=== PATIENT | male | born 1960 | race Caucasian/White ===

== ENCOUNTER 2019-03-02 17:21 | Inpatient (IN) ==
[2019-03-02] MEDS ORDERED: Naloxone 0.4 MG/ML INJ IVP PRN (22:55)
[2019-03-02] MEDS ORDERED: Heparin 25,000 UNIT/250 ML D5W 25,000 UNIT/250 ML IV.SOLN IVC SCH (23:15)
[2019-03-02] MEDS ORDERED: *HR* Heparin 5,000 UNIT/ML VIAL IVP PRN ×2 (23:15)
--- NOTE | 2019-03-02 23:26 | Internal Med History&Physical ---
Date of Encounter: 03/02/19 Time of Encounter: 23:17 Internal Medicine - H&P: HPI Chief complaint: Right leg pain History of present illness: Mr. Proctor is a 58 year old male chronic smoker with no other documented past medical history aside from a remote history of gastric ulcers who initially presented to [facility] due to right lower extremity pain and swelling. On their assessment Lower extremity pulses were reportedly not palpable. ABIs performed at [facility] were 0.48 and 0.80 for the right and left extremities respectively. A lower extremity arterial duplex was performed which showed significant peripheral vascular disease with various levels of occlusion and high grade stenosis involving the right and left from oral artery, and posterior tibialis artery. Case was discussed with Dr. Scott with vascular surgery and patient was subsequently to transferred here. Patient is a [id number] smoker. He reports he drinks approximately six pack of beer a day. He has not followed up with a physician since 1992. He reports she has been having right lower extremity pain since September that is worse with ambulation, radiates up to his calf and resolves with rest. Shortly after arrival patient was evaluated by Dr. Scott and per his assessment does not feel this to be a presentation of life threatening ischemia and will set patient up for a lower extremity angiography in the morning. At this time patient denies any fever, chills, shortness of breath, chest pain, abdominal pain, nausea, vomiting or diarrhea. Past Med Surg Social Fam HX - Past Medical History Medical history: no medical history Psychiatric history: no psych history - Past Surgical History Additional surgical history: plate to left side face - Social History Smoking Status: Current every day smoker Smokeless Tobacco Status: No Alcohol use: occasionally Drug use: marijuana Internal Medicine - H&P: Meds No Known Home Drugs 09/09/18 [History] Allergy/AdvReac Type Severity Reaction Status Date / Time No Known Allergies Allergy Verified 09/09/18 12:03 All Systems PM: A 10-system review of systems was performed and is negative for pertinent findings except as documented above in the HPI. - Constitutional Constitutional: no chills, no fever(s), no night sweats - EENT Eyes: no change in vision, no discharge, no pain, no photophobia Ears: no ear discharge, no ear pain, no tinnitus Nose, mouth and throat: no dysphagia, no nasal discharge, no neck pain, no sore throat - Cardiovascular Cardiovascular ROS IM: no chest pain, no diaphoresis, no dyspnea, no lightheadedness, no palpitations, no syncope - Respiratory Respiratory: no cough, no dyspnea, no wheezing, no excessive phlegm production - Gastrointestinal Gastrointestinal: no abdominal pain, no diarrhea, no hematemesis, no hematochezia, no melena, no nausea, no vomiting - Musculoskeletal Musculoskeletal ROS IM: no numbness, no tingling - Integumentary Integumentary IM: no rash, no unusual bruising - Neurological Neurological ROS: no confusion, no convulsions, no focal weakness, no numbness, no tingling, no tremor(s) - Hematologic/Lymphatic Hematologic/Lymphatic: no easy bruising - Constitutional Vitals: Temp Pulse Resp BP Pulse Ox 97.4 F L 74 14 196/121 97 03/02/19 20:05 03/02/19 20:05 03/02/19 20:05 03/02/19 20:05 03/02/19 20:05 Exam: General: Alert and oriented 3 lying in bed in no acute distress Skin:Normal color, no rash, no lesions. HEENT:EOM, pupils equal, round and reactive. Cardiovascular:Normal S1 & S2, no rubs, murmurs or gallops. No JVD. Pulse regular. Lungs:Normal breath sounds, no wheezes or crackles. Abdomen:Soft, non-tender, no rigidity. Extremities: Bilateral popliteal and pedal pulses are absent. Feet are warm to palpation. Neurological:Normal cognition and motor skills. Pulses:Carotid and radial pulses normal +2. Rest of the physical exam is non contributory Internal Med - H&P Results - Labs CBC & Chem 7: 03/02/19 23:46 03/03/19 07:02 - Assessment and Plan (1) Arterial occlusion, lower extremity Current Visit: Yes Status: Acute Assessment and plan: MARIUSZ at [facility] showing 0.48 and 0.80 of the right and left lower extremities respectively. Lower extremity arterial duplex showed right femoral artery distally appearing occluded with recannulized flow to the popliteal artery. Flow noted to the right posterior tibialis artery proximally, but appears occluded at the mid level. High-grade focal stenosis noted at the left femoral artery mid level. Diffuse plaque noted bilaterally. Patient was evaluated by Dr. Scott in my presence. At this time he does not feel that patient's current clinical presentation is consistent with limb threatening ischemia and is more likely a ongoing chronic issue of arterial insufficiency; recommended discontinuing heparin for now. He will take the patient in the morning for further evaluation with angiography. -We will continue IV fluids -Pain control -We will start patient on high-dose statin and obtain fasting lipid panel in the morning as well as an A1c -We will keep patient NPO this evening. (2) Peripheral vascular disease Current Visit: Yes Status: Acute Assessment and plan: See above (3) Hypertension Current Visit: Yes Status: Chronic Assessment and plan: On arrival patient was found to be hypertensive with a blood pressure in the 170s systolic and 100 diastolic. We will give one-time dose of hydralazine and monitor. Qualifiers: Hypertension type: essential hypertension Qualified Code(s): I10 - Essential (primary) hypertension (4) Smoking history Current Visit: Yes Status: Chronic Assessment and plan: Discussed need for smoking cessation which was further reiterated by Dr. Scott. Nicotine patch as needed. (5) Elevated troponin Current Visit: Yes Status: Acute Assessment and plan: Patient on an elevated troponin of 0.13. EKG was obtained which shows normal sinus rhythm. There is a [address] elevations in the lateral leads. Patient not currently complaining of any chest pain. -We will place patient on telemetry -We will give loading dose of aspirin -Trend troponin -Patient may need further cardiac workup with echocardiogram and stress testing given PVD and significant risk factors for coronary artery disease. (6) Elevated serum creatinine Current Visit: Yes Status: Acute Assessment and plan: Elevated serum creatinine of 1.39. Unclear if patient has underlying chronic kidney disease. Continue fluids and reassess. (7) DVT prophylaxis Current Visit: Yes Status: Acute Assessment and plan: Subcutaneous heparin - Time Spent With Patient Total time spent is greater than 50% in coordination of care (as documented) at patient's floor/unit and/or counseling patient:
--- NOTE | 2019-03-03 00:09 | Vascular/Endovasc Consult Note ---
Date of Encounter: 03/02/19 Time of Encounter: 23:00 Assessment and Plan (1) Peripheral vascular disease Current Visit: Yes Status: Chronic Patient has severe lifestyle limiting claudication. I do not interpret his symptoms and physical exam to represent ischemic rest pain. Therefore I believe the patient can be treated tomorrow and does not require emergency intervention. I recommended to the patient that he focused first on risk factor reduction and in particular complete tobacco cessation. I also informed him that he would need to be on antiplatelet therapy as well as antilipid therapy. Due to his limitation in ambulation I recommended that we perform an aortogram with runoff and probable right lower extremity endovascular intervention tomorrow. The patient wishes to proceed. We will attempt to make the necessary arrangements for angiography on Wednesday afternoon. (2) Smoking history Current Visit: Yes Status: Chronic Patient has severe tobacco abuse history. He smokes at least one pack a day and has been smoking for over 45 years. - History of Present Illness Consult date: 03/02/19 Consult reason: Right lower extremity pain Chief complaint: Right lower extremity pain History of present illness: Mr. Proctor is a 58 year old male Who was transferred from the ER at [facility] in [place] this evening. The patient had presented there with a 6 month if not longer history all right lower extremity pain with ambulation. The patient states that he has severe right foot pain as well as swelling and this radiates up into the calf. He can begin feeling this pain at 100 feet and by 100 yards he needs to stop and rest. He does not have ischemic pain at rest or nocturnal rest pain. He does not have any left lower extremity symptoms at that time. Patient states that the pain is worsening over time. He had been in the emergency room [facility] in September 2018. A venous duplex scan was performed at that time which was negative for DVT. At this time when the patient presented himself to the emergency room at [place] arterial studies were performed. I do not have the exact measurements at the time of this dictation but essentially the patient had an ankle-brachial index on the right of approximately 0.4 and on the left of approximately 0.8. The studies from the outside hospital indicated that the right superficial femoral artery was occluded and that the left popliteal artery had severe disease. The patient has not seen a physician he states for over 25 years. He is an active tobacco smoker he has been smoking for at least 45 years and smokes at least 1 pack of cigarettes a day. The patient does not know his lipid status. He states that he has hypertension but takes no medications. He denies that he is a diabetic. Past Med Surg Social Fam HX - Past Medical History Medical history: no medical history Psychiatric history: no psych history - Past Surgical History Additional surgical history: plate to left side face - Social History Smoking Status: Current every day smoker Smokeless Tobacco Status: No Alcohol use: occasionally Drug use: marijuana Medications and Allergies No Known Home Drugs 09/09/18 [History] Allergy/AdvReac Type Severity Reaction Status Date / Time No Known Allergies Allergy Verified 09/09/18 12:03 All Systems Review: The remainder of the systems were reviewed and are negative Exam Vital Signs, Last 4 Hours Temp Pulse Resp BP Pulse Ox 03/03/19 00:02 98.2 F 76 12 174/95 96 General: Present: Conversant, No Apparent Distress, Well developed, Well nourished HEENT: Present: Atraumatic, Normocephaly, Trachea midline Neck: Absent: JVD, Left Carotid bruit, Right Carotid bruit, Midline deformity, Tracheal deviation Cardiac: Present: Reg Rate and Rhythm, Normal S1 and S2, No Murmur Lungs: Present: Decreased breath sounds Neuro: Present: Alert and responsive, No focal deficits noted, Cranial nerves grossly intact Abdomen: Present: Soft, Non-tender, Other (No abdominal bruits). Absent: Masses Vascular: Present: Normal capillary refill, Bruit (Left femoral pulse has a bruit), Pulse, absent (Bilateral popliteal and pedal pulses), Pulse, normal (Bilateral femoral), Color/Temperature (His feet are warm to the touch. The plantar surface of his feet are quite dirty. ). Absent: Cyanosis, Edema, Rader rgical incisions, Amputation(s) Skin: Present: No rashes noted on visualized skin Consult Discharge Plan - Plan Referrals: NONE,PCP [Primary Care Provider] -
[2019-03-03] MEDS: 0.9 % Sodium Chloride 1,000 ML IVC SCH ×2 (00:12→16:28)
[2019-03-03] MEDS: OXYCODONE Oral CONC 10 MG/0.5 ML ORAL.SYG SL PRN ×4 (00:12→20:16)
[2019-03-03 00:16] LABS: Estimated Average Glucose 108 mg/dl; Hemoglobin A1C 5.4 %
[2019-03-03 00:22] LABS: Alanine Aminotransferase 13 Units/L (7-52); Albumin 3.8 g/dL (3.5-5.7); Albumin/Globulin Ratio 1.4 (1.1-2.2); Alkaline Phosphatase 58 Units/L (34-104); Aspartate Amino Transferase 17 Units/L (13-39); BUN/Creatinine Ratio 14 (6-26); Bilirubin,Total 0.5 mg/dL (0.3-1.0); Blood Urea Nitrogen 19 mg/dL (6-20); Calcium 9.1 mg/dL (8.6-10.3); Carbon Dioxide 21 mEq/L (23-29); Chloride 111 mEq/L (98-107); Globulin 2.8 g/dL (2.4-3.5); Glucose 186 mg/dL (70-105); Magnesium 1.9 mg/dL (1.6-2.6); Osmolality,Calculated 299 (280-300); Phosphorous 3.2 mg/dL (2.7-4.5); Potassium 3.7 mEq/L (3.5-5.1); Sodium 141 mEq/L (136-145); Total Protein 6.6 g/dL (6.4-8.9); eGFR For African Americans > 60 (> 60); eGFR For Non-African Americans 52 (> 60)
[2019-03-03 00:26] LABS: INR 1.1; Prothrombin Time 12.1 Seconds (9.4-12.1)
[2019-03-03 00:29] LABS: Activated Partial Thrombo Time 101.9 Seconds (26.0-36.0)
[2019-03-03 00:33] LABS: Troponin I 0.13 ng/mL (< 0.04)
[2019-03-03 00:36] LABS: Basophils # 0.1 K/mcL (0.0-0.2); Basophils % 0.5 %; Eosinophils # 0.5 K/mcL (0.0-0.6); Eosinophils % 4.3 %; Hematocrit 40.2 % (37.5-50.1); Hemoglobin 13.1 g/dL (12.9-16.9); Immature Granulocytes % 0.4 % (0-4); Lymphocytes # 2.5 K/mcL (0.6-4.6); Lymphocytes % 22.4 %; Mean Corpuscular HGB Conc 32.6 g/dL (31.6-35.5); Mean Corpuscular Hemoglobin 32.6 pg (28.0-33.3); Mean Platelet Volume 10.9 fL (9.4-12.4); Monocytes # 0.9 K/mcL (0.0-1.3); Monocytes % 7.8 %; Neutrophils # 7.3 K/mcL (1.6-8.9); Platelet Count 263 K/mcL (140-400); Red Blood Count 4.02 M/mcL (4.19-5.50); Red Cell Distribution Width 13.7 % (11.5-14.5); Segmented Neutrophils % 64.6 %; White Blood Count 11.2 K/mcL (4.3-11.1)
[2019-03-03 03:32] LABS: Chol/HDL Ratio 2.7 (0-4.9)
[2019-03-03] MEDS: Nicotine 14 MG PATCH.TD24 TD SCH (07:11)
[2019-03-03 07:55] LABS: Troponin I 0.12 ng/mL (< 0.04)
[2019-03-03 08:07] LABS: BUN/Creatinine Ratio 15 (6-26); Blood Urea Nitrogen 21 mg/dL (6-20); Calcium 9.3 mg/dL (8.6-10.3); Carbon Dioxide 21 mEq/L (23-29); Chloride 113 mEq/L (98-107); Glucose 97 mg/dL (70-105); Osmolality,Calculated 301 (280-300); Potassium 3.7 mEq/L (3.5-5.1); Sodium 144 mEq/L (136-145); eGFR For African Americans > 60 (> 60); eGFR For Non-African Americans 51 (> 60)
[2019-03-03] MEDS ORDERED: 0.9 % Sodium Chloride 1,000 ML ONE (10:47)
[2019-03-03] MEDS ORDERED: Isovue-300 150 ML INFUS..BTL ONE ×2 (10:48→12:05)
[2019-03-03] MEDS ORDERED: *HR* Heparin 10,000 UNIT/10 ML VIAL ONE (10:48)
[2019-03-03] MEDS ORDERED: Nitroglycerin 1,000 MCG/10 ML VIAL IV ONE (10:48)
[2019-03-03] MEDS ORDERED: Heparin 1,000 UNITS/500 mL 500 ML ONE (10:51)
[2019-03-03] MEDS ORDERED: *HR* Midazolam HCl 2 MG/2 ML VIAL ONE (11:13)
[2019-03-03] MEDS ORDERED: *HR* FentaNYL (PF) 100 MCG/2 ML VIAL ONE ×2 (11:13→11:56)
--- NOTE | 2019-03-03 11:13 | History & Physical Report ---
Date of Encounter: 03/03/19 Time of Encounter: 11:12 24 Hour HP Update - Instructions Instructions: If the History and Physical is less than 30 days old and was completed prior to A.M. admission and or procedure and has NOT been updated on calendar day of procedure please complete this update prior to performing procedure. - Update Patient reports changes in Medical Condition: No Changes in examination, assessment, or condition: No Changes in Medication: No Preop tests/diagnostics Reviewed: Yes Surgery Remains Indicated: Yes Consent for Planned Operative Procedure(s) Verified: Yes - Pre-Operative Checklist Preoperative Checklist Indicated: No Prophylactic Antibiotic Ordered: No Home Medications Include Beta Juventino: No Beta Juventino Taken Today (Day of Surgery): No Beta Juventino Taken Yesterday (Day Prior to Surgery): No Is VTE Prophylaxis Indicated?: NO
--- NOTE | 2019-03-03 11:13 | Pre-Sedation Evaluation ---
Pre-sedation evaluation - Pre-sedation checklist Date of procedure: 03/03/19 Procedure: Angiogram Recent Vitals: Last Vital Signs Temp 98.6 F 03/03/19 07:27 Pulse 73 03/03/19 07:27 Resp 16 03/03/19 07:27 BP 165/92 03/03/19 07:27 Pulse Ox 93 03/03/19 07:27 H&P (including ROS) documented in medical record: Yes Previous reaction to sedatives/anesthetics: No Dietary Status: NPO after Midnight Dentition: poor dentition ASA Classification *see protocol: CLASS III-Severe systemic disease Plan of Care: Pt appropriate candidate for procedure/moderate/conscious sedation, Risks/benefits of procedure/sedation discussed w/ patient/family
[2019-03-03] MEDS ORDERED: *HR* Metoprolol 5 MG/5 ML VIAL IVP ONE (11:22)
--- NOTE | 2019-03-03 12:05 | Internal Med Progress Note ---
Hospitalist Progress Note - Encounter Date of Encounter: 03/03/19 Time of Encounter: 09:15 - Subjective Interval History: H&P reviewed. Pt states that he doesn't have much pain when resting but does complain of long-standing numbness of R foot. No fever overnight - Exam Vitals: Temp Pulse Resp BP Pulse Ox 98.6 F 73 16 165/92 93 03/03/19 07:27 03/03/19 07:27 03/03/19 07:27 03/03/19 07:27 03/03/19 07:27 Exam: General: Alert and oriented 3 lying in bed in no acute distress Cardiovascular:Normal S1 & S2, no rubs, murmurs or gallops. No JVD. Pulse regular. Lungs:Normal breath sounds, no wheezes or crackles. Abdomen:Soft, non-tender, no rigidity. Extremities: Bilateral popliteal and pedal pulses are absent. Feet are warm to palpation however - Assessment and Plan (1) Peripheral vascular disease Current Visit: Yes Status: Acute Assessment and Plan: presented with R LE claudication MARIUSZ at the OSH was 0.48 on the right, 0.8 on the left appreciate vascular surgery input, for aortogram with runoff today ASA, statin (2) Elevated troponin Current Visit: Yes Status: Acute Assessment and Plan: troponin of 0.13 - 0.12 witH EKG showing NSR, unlikely to represent ACS telemetry echocardiogram ASA, statin as above (3) CKD (chronic kidney disease) stage 3, GFR 30-59 ml/min Current Visit: Yes Status: Suspected Assessment and Plan: suspect underlying CKD in the setting of poorly controlled HTN avoid nephrotoxins continue IVF for now in anticipation of aortogram today (4) Smoking history Current Visit: Yes Status: Chronic Assessment and Plan: NRT counseling proided (5) Hypertension Current Visit: Yes Status: Chronic Assessment and Plan: labetalol PRN for now (6) DVT prophylaxis Current Visit: Yes Status: Acute Assessment and Plan: SQ heparin - Time Spent with Patient Total time spent is greater than 50% in coordination of care (as documented) at patient's floor/unit and/or counseling patient: 25 - 35 minutes Plan of Care Discussed with: patient Internal Medicine: Result - Labs CBC & Chem 7: 03/02/19 23:46 03/03/19 07:02 Labs: Short CBC 03/02/19 Range/Units 23:46 WBC 11.2 H (4.3-11.1) K/mcL Hgb 13.1 (12.9-16.9) g/dL Hct 40.2 (37.5-50.1) % Plt Count 263 (140-400) K/mcL Neutrophils # 7.3 (1.6-8.9) K/mcL BMP 03/02/19 03/03/19 23:46 07:02 Sodium 141 144 Potassium 3.7 3.7 Chloride 111 H 113 H Carbon Dioxide 21 L 21 L BUN 19 21 H Creatinine 1.39 H 1.41 H Glucose 186 H 97 Calcium 9.1 9.3 Cardiac Enzymes 03/02/19 03/03/19 Range/Units 23:46 07:02 Troponin I 0.13 H* 0.12 H* (< 0.04) ng/mL Liver Function 03/02/19 Range/Units 23:46 Total Bilirubin 0.5 (0.3-1.0) mg/dL AST 17 (13-39) Units/L ALT 13 (7-52) Units/L Alkaline Phosphatase 58 (34-104) Units/L Albumin 3.8 (3.5-5.7) g/dL - ABG Interpretation ABG results: PT/INR, D-dimer PT 12.1 Seconds (9.4-12.1) 03/02/19 23:46 Consult Discharge Plan - Plan Referrals: NONE,PCP [Primary Care Provider] - (5) Hypertension Qualifiers: Hypertension type: essential hypertension Qualified Code(s): I10 - Essential (primary) hypertension
--- NOTE | 2019-03-03 12:14 | Procedure Note ---
Date of procedure: 03/03/19 Pre-op diagnosis: PAD/right leg claudication Post-op diagnosis: same Procedure: abdominal aortogram aortogram with bilateral lower extremity runoff selective right leg angiogram Anesthesia: MAC Surgeon: Ramirez Baldwin Was there an client account assistant present: No Estimated blood loss (cc): 0 Specimen: 0 Condition: stable Disposition: floor (patient will need right femoral-popliteal bypass graft next week(tentative Wednesday))
[2019-03-03] MEDS ORDERED: Ondansetron 4 MG/2 ML VIAL IVP PRN (12:22)
[2019-03-03] MEDS ORDERED: *HR* HYDROcodone/Acet 5/325 mg TABLET PO PRN (12:22)
[2019-03-03] MEDS ORDERED: Acetaminophen 325 MG TABLET PO PRN (12:22)
[2019-03-03] MEDS: *HR* Labetalol 20 MG/4 ML SYRINGE IVP PRN ×2 (13:43→21:18)
[2019-03-03] MEDS: *HR* Heparin 5,000 UNIT/ML VIAL SQ SCH ×2 (14:04→20:16)
--- NOTE | 2019-03-03 17:48 | Electrocardiograph Report ---
[address] [address] Test Date: 2019-03-03 Pat Name: Jesus Alberto Proctor Department: 111 Room: 2NE23 Gender: M Technical Stenographer: Raw : 1960 Requested By: Jacklyn Pulido Order Number: [id number] Reading MD: Jose Dodge Measurements Intervals [place] Rate: 70 P: 45 MS: 140 QRS: -16 QRSD: 120 T: 89 QT: 417 QTc: 438 Interpretive Statements SINUS RHYTHM POSSIBLE RIGHT VENTRICULAR CONDUCTION DELAY MODERATE T-WAVE ABNORMALITY, CONSIDER ANTERIOR AND ANTEROLATERAL ISCHEMIA Electronically Signed On 03-03-2019 17:46:26 EDT by Jose Dodge
[2019-03-03] MEDS ORDERED: *HR* LORazepam 2 MG/ML VIAL IVP PRN ×3 (19:52)
[2019-03-03] MEDS ORDERED: *HR* Promethazine 25 MG/ML VIAL IVP PRN (19:52)
[2019-03-03] MEDS: Thiamine (B-1) 100 MG TABLET PO SCH (20:15)
[2019-03-03] MEDS: Folic Acid 1 MG TABLET PO SCH (20:15)
[2019-03-03] MEDS: Vitamin B Complex/Vit C/Vit E 1 EACH TABLET PO SCH (20:16)
[2019-03-03 22:17] LABS: Amylase 21 Units/L (29-103); Ethanol < 10 mg/dL (Less than 10); Lipase 65 Units/L (11-82)
[2019-03-04] MEDS ORDERED: *HR* Metoprolol 5 MG/5 ML VIAL IVP ONE (00:37)
[2019-03-04] MEDS: OXYCODONE Oral CONC 10 MG/0.5 ML ORAL.SYG SL PRN ×2 (00:42→08:38)
[2019-03-04] MEDS: *HR* Heparin 5,000 UNIT/ML VIAL SQ SCH (05:08)
[2019-03-04 06:51] LABS: Basophils # 0.1 K/mcL (0.0-0.2); Basophils % 0.5 %; Eosinophils # 0.4 K/mcL (0.0-0.6); Eosinophils % 3.2 %; Hematocrit 37.7 % (37.5-50.1); Hemoglobin 12.3 g/dL (12.9-16.9); Immature Granulocytes % 0.3 % (0-4); Lymphocytes # 1.7 K/mcL (0.6-4.6); Lymphocytes % 14.9 %; Mean Corpuscular HGB Conc 32.6 g/dL (31.6-35.5); Mean Corpuscular Hemoglobin 32.4 pg (28.0-33.3); Mean Corpuscular Volume 99.2 fL (83.0-100.0); Mean Platelet Volume 11.1 fL (9.4-12.4); Monocytes # 1.3 K/mcL (0.0-1.3); Monocytes % 11.2 %; Platelet Count 235 K/mcL (140-400); Red Cell Distribution Width 13.7 % (11.5-14.5); Segmented Neutrophils % 69.9 %; White Blood Count 11.4 K/mcL (4.3-11.1)
[2019-03-04 07:04] LABS: Calcium 9.2 mg/dL (8.6-10.3); Potassium 3.7 mEq/L (3.5-5.1)
[2019-03-04 07:46] VITALS: BP 176/96
[2019-03-04] MEDS: Vitamin B Complex/Vit C/Vit E 1 EACH TABLET PO SCH (08:33)
[2019-03-04] MEDS: Folic Acid 1 MG TABLET PO SCH (08:33)
[2019-03-04] MEDS: Thiamine (B-1) 100 MG TABLET PO SCH (08:33)
[2019-03-04] MEDS: Nicotine 14 MG PATCH.TD24 TD SCH (08:34)
[2019-03-04] MEDS ORDERED: Aspirin Enteric Coated 81 MG Tablet PO SCH (09:00)
--- NOTE | 2019-03-04 09:57 | Discharge Summary ---
- NOTES TO OUTPATIENT PROVIDER Notes to Outpatient Provider: BMP in 5 days. Follow up with Vascular Surgery on 03/07 for fem-pop bypass. Follow up with Nephrology as outpatient for CKD. Orders not resulted at time of discharge: Pending orders 03/04/19 19:54 EV echocardiogram Routine Date of Encounter: 03/04/19 Time of Encounter: 07:15 - Discharge Diagnosis (1) Peripheral vascular disease Priority: Primary Status: Acute (2) Hypertension Priority: Secondary Status: Chronic Qualifiers: Hypertension type: essential hypertension Qualified Code(s): I10 - Essential (primary) hypertension (3) Arterial occlusion, lower extremity Priority: Secondary Status: Acute (4) Smoking history Priority: Secondary Status: Chronic (5) DVT prophylaxis Priority: Secondary Status: Acute (6) Elevated troponin Priority: Secondary Status: Acute (7) Elevated serum creatinine Priority: Secondary Status: Acute Hospital course: Mr. Proctor is a 58 year old male strip tobacco abuse was admitted for R LE PAD and elevated troponin in the setting of poorly controlled HTN. Underwent aortogram with bilateral lower extremity runoff and vascular surgery determined that he needs R fem-pop bypass that was scheduled for 03/07. He also had echocardiogram done for mildly elevated troponin of 0.13 -0.12 without angina and the findings were unremarkable. He had elevated Creatinine level that were stable around 1.4-1.5 raising a suspicion for CKD. He will be discharged home on ASA, statin and coreg/norvasc for BP and follow up with Vascular surgery on 03/07 for surgery and Nephrology for CKD with BMP in 5 days. Discharge discussed with: patient, nurse, sql server consultant - Time Spent with Patient Total time spent providing and/or coordinating discharge services: 32 mins - Discharge Medications Prescriptions: New Aspirin Enteric Coated [Aspirin EC] 81 mg PO DAILY #30 tablet. Carvedilol [Coreg] 6.25 mg PO BIDWM #60 tablet Atorvastatin [Lipitor] 80 mg PO HS #60 tablet amLODIPine [Norvasc] 5 mg PO DAILY #30 tablet Home Medications: Aspirin Enteric Coated [Aspirin EC] 81 mg PO DAILY #30 tablet. 03/04/19 [Rx] Atorvastatin [Lipitor] 80 mg PO HS #60 tablet 03/04/19 [Rx] Carvedilol [Coreg] 6.25 mg PO BIDWM #60 tablet 03/04/19 [Rx] amLODIPine [Norvasc] 5 mg PO DAILY #30 tablet 03/04/19 [Rx] Allergies/Adverse Reactions: Allergy/AdvReac Type Severity Reaction Status Date / Time No Known Allergies Allergy Verified 09/09/18 12:03 Date of admission: 03/03/19 04:16 Primary care physician: PCP NONE Consults: 03/03/19 19:52 Consult to Welder Helper [CONS] Routine Reason for SW Consult: Alcohol rehabilitation - Constitutional Vitals: Temp Pulse Resp BP Pulse Ox 98.2 F 74 15 176/96 94 03/04/19 07:43 03/04/19 07:43 03/04/19 07:43 03/04/19 07:43 03/04/19 07:43 Exam: General: Alert and oriented 3 lying in bed in no acute distress Cardiovascular:Normal S1 & S2, no rubs, murmurs or gallops. No JVD. Pulse regular. Lungs:Normal breath sounds, no wheezes or crackles. Abdomen:Soft, non-tender, no rigidity. Extremities: Bilateral popliteal and pedal pulses are absent. Feet are warm to palpation however - Patient Status Disposition: Home, Self-Care Condition: Fair Functional capacity at discharge: independent ambulation - Discharge Instructions Instructions: Peripheral Vascular Disorders (DC), Chronic Hypertension (DC) Follow Up With: NONE,PCP [Primary Care Provider] - - Diet and Activity Activity: resume usual activities as tolerated Diet: low salt diet
[2019-03-04] MEDS ORDERED: amLODIPine 5 MG TABLET PO SCH (10:00)
--- NOTE | 2019-03-06 08:51 | Invasive Diagnostic Lab Proc ---
Name: Jesus Alberto Proctor Date of Study: 03/03/2019 Date: 1960 Ht: 173.0 in Medical Record#: [id number] Age: 58 Wt: 67 lb Gender: Male BSA: 1.8 Order #: [id number] BMI: 22.39 Physicians Performing MD: Ramirez Baldwin MD, FACS Referring MD: Referring MD: Staff Name Position Time In Portia Savagelee RT (R) Pc Network Technician Hussein Faith RT (R) Scrub Chip Bautista RN Monitor Indications Claudication Procedures Performed AORTOGRAPHY, ABDOMINAL S&I AORTOGRAPHY EXT Bilat S&I CATH PLCMT,3RD ORDER AB/PEL/EX Pre-Procedure Checklist Informed consent is complete signed and on chart. H&P is on chart. ID band is on and ID verified with patient. Patient NPO for procedure The procedure was described for the patient and questions were answered. Blood Pressure: 182/104 ECG is on chart. Rhythm: NSR Plan of Care Patient will tolerate the procedure without complications. Adequate level of comfort will be maintained. Hemodynamics will remain stable Patient will recover from procedure without complications. Respiratory function will be maintained. Cardiac rhythm will remain stable. Patient temperature will be maintained. Patient and/or family have verbalized understanding of the procedure. Patient Education Chief Complaint/Reason for Test: Peripheral angiogram Developmental Category: Adult (18-64 years) Learning Barriers: None Education Needs: Procedure Education Method: Verbal Information Taught: Peripheral angiogram Educational Evaluation: Able to repeat information Intravenous Access Time IV Size Location DC'd Fluid/Drip Rate Units RN 20g 1 /" Patent On Arrival Lt Antecubital 0.9NaCl 25 ml/hr John Zazueta RN Allergies No Known Allergies Vital Signs Time BP Systolic BP Diastolic HR O2 Sats ASA 11:05 AM 11:05 AM 11:20 AM 11:35 AM 11:51 AM 11:13 AM 182 104 76 95 11:18 AM 175 102 76 94 11:23 AM 157 93 73 94 11:27 AM 165 102 63 96 11:33 AM 140 78 63 97 11:38 AM 143 81 63 97 11:42 AM 147 90 66 95 11:48 AM 151 93 58 96 11:53 AM 152 96 68 97 11:58 AM 163 89 56 95 12:03 PM 160 90 57 96 12:08 PM 168 98 62 96 12:19 PM 175 96 62 94 12:22 PM 167 98 63 95 12:40 PM 166 95 61 95 Procedure Medications Time Medication Dose Units Method Route 11:09 AM Oxygen 2 L/min nasal cannula 11:15 AM Versed 1 mg Intravenous 11:16 AM Fentanyl 50 mcg Intravenous 11:22 AM Metoprolol 5 mg Intravenous 11:24 AM Versed 1 mg Intravenous 11:24 AM Fentanyl 50 mcg Intravenous 11:26 AM Lidocaine 2% 10 ml Subcutaneous 11:56 AM Fentanyl 50 mcg Intravenous ASA Classification: CLASS III- Severe systemic disease (i.e. prior AMI, diabetes with vascular complications, morbid obesity) Octaviano Score Preprocedure Postprocedure Activity 2- Moves 4 extremities sustained head lift Activity 2- Moves 4 extremities sustained head lift Circulation 2- SBP +/= 20 points of pre-anesthetic level Circulation 2- SBP +/= 20 points of pre-anesthetic level Consciousness 2- Awake and alert oriented x 3 Consciousness 2- Awake and alert oriented x 3 O2 Saturation 2- Able to maintain O2 satruation of 92% on room air O2 Saturation 2- Able to maintain O2 satruation of 92% on room air Respiratory 2- Able to deep breathe and cough well Respiratory 2- Able to deep breathe and cough well Total Score 10 Total Score 10 Contrast: Isovue 300- 150ml Contrast Amount: 124 ml Fluoro Dose: 141 mGy Procedure Log Time Note Entered By 11:04 AM Pt arrived to nursery laborer 2 at 11:04 [email or web address] 11:04 AM John Zazueta RN Position: Pc Network Technician Time in: 11: [email or web address] 11:05 AM Hussein Faith RT (R) Position: Scrub Time in: 11:04 opajohn 11:05 AM Chip Bautista RN Position: Monitor Time in: 11:05 oparker 11:05 AM Time: 11:05 Is patient comfortable and pain free?: Yes oparker 11:05 AM Time: 11:05LOC: 5 = Fully awake and oriented or at pre-proc level oparker 11:07 AM Physician arrived 11:07 oparker 11:07 AM Colby and raysa completed oparker 11:07 AM Sign in performed according to hospital policy. oparker 11:09 AM ASA Class CLASS III- Severe systemic disease (i.e. prior AMI, diabetes with vascular complications, morbid obesity) oparker 11:09 AM 11:09 Oxygen at 2 L/min per nasal cannula by John Zazueta RN oparker 11:14 AM Hair removed from procedure site in holding area using clippers. Bilateral groin prepped with Chloraprep by John Zazueta RN, then patient was draped. Skin intact. oparker 11:16 AM 11:15 Versed 1 mg Intravenous Given by John Zazueta RN oparsumeet 11:16 AM 11:16 Fentanyl 50 mcg Intravenous Given by John Zazueta RN oparsumeet 11:20 AM Time: 11:05LOC: 4 = Oriented but drowsy oparker 11:20 AM Time: 11:05 Is patient comfortable and pain free?: Yes oparker 11:21 AM Time out perfomed oparker 11:08 AM Procedure start 11:08 oparker 11:23 AM Time: 11:22 Metoprolol 5 mg Intravenous Given by John Zazueta RN oparsumeet 11:24 AM 11:24 Versed 1 mg Intravenous Given by John Zazueta RN oparsumeet 11:24 AM 11:24 Fentanyl 50 mcg Intravenous Given by John Zazueta RN oparsumeet 11:26 AM 11:26 10 ml Lidocaine 2% to right groin Subcutaneous Given By Ramirez Baldwin MD, FACS oparker 11:26 AM Access obtained in the left femoral artery by percutaneous puncture. 5 Fr. 10 cm Terumo [place] sheath placed in right femoral artery oparker 11:26 AM 0.035 180cm J-wire wire utilized to assist with catheter placement oparker 11:27 AM 5Fr Short pigtail catheter inserted over the wire oparker 11:27 AM 4 of contrast hand injected oparker 11:28 AM Abdominal aorta angiography performed in AP contrast injected 10/25 mls. oparker 11:34 AM Abdominal angiogram with runoff completed: 5 ml/sec for a total of 50 mls oparker 11:35 AM Catheter removed oparker 11:35 AM Time: 11:20 Is patient comfortable and pain free?: Yes oparker 11:35 AM Time: 11:20LOC: 4 = Oriented but drowsy oparker 11:39 AM Sheath exchanged for a 6 Fr 45 cm Terumo [place] sheath inserted into left femoral artery oparker 11:36 AM 5Fr Omniflush catheter inserted oparker 11:38 AM Catheter removed oparker 11:41 AM Wire removed oparker 11:44 AM 0.035 Glidewire Angled 260cm guidewire advanced to target vessel. tsites 11:47 AM 5Fr 100cm Glidecath Angled-Taper guide catheter tsites 11:48 AM 3cc of contrast injected tsites 11:51 AM Time: 11:35LOC: 4 = Oriented but drowsy tsites 11:51 AM Time: 11:35 Is patient comfortable and pain free?: Yes tsites 11:51 AM Guide wire removed intact tsites 11:52 AM 0.014 [place] 14, 30 gram 260cm guidewire advanced to target vessel. tsites 11:55 AM Guide catheter removed intact tsites 11:56 AM 4Fr 150cm [place] guide catheter advanced to target vessel tsites 11:56 AM 11:56 Fentanyl 50 mcg Intravenous Given by John Zazueta RN tsites 11:59 AM 4cc of contrast injected tsites 12:00 PM 4cc of contrast injected tsites 12:01 PM Guide wire removed intact tsites 12:01 PM Guide catheter removed intact tsites 12:03 PM unable to advance catheter tsites 12:04 PM Right anterior tibial, Right posterior tibial, Right dorsalis pedis, and Right peroneal angiography performed in AP contrast injected 5/15 mls. tsites 12:06 PM Right anterior tibial, Right posterior tibial, Right peroneal, and Right dorsalis pedis angiography performed in AP contrast injected 5/20 mls. tsites 12:06 PM Time: 11:51 Is patient comfortable and pain free?: Yes tsites 12:06 PM Time: 11:51LOC: 4 = Oriented but drowsy tsites 12:10 PM Procedure completed at 12:10 tsites 12:10 PM Sign Out completed: Radiation Dose 141 mGy Fluoro Time: 10.1 minutes. Isovue 300- 150ml contrast 124 ml given by Ramirez Baldwin MD, FACS. Complications: None. Confirmed administered medications:Yes Sedation minutes 55 tsites 12:10 PM Isovue 300- 150ml,2 bottle(s) used. tsites 12:10 PM Sheath left in place to be pulled on floor/holding areaV+Pad tsites 12:11 PM Estimated Blood Loss: minimal tsites 12:11 PM Post Blood Pressure: 168/98 tsites 12:11 PM Post EKG: NSR tsites 12:11 PM 12:11 Post Pulses: Bilateral DP & PT Doppler. tsites 12:11 PM Information taught: Peripheral angiogram and V+Pad tsites 12:11 PM Education needs: Procedure, Plan of Care, and Responsibilities of Patient in Care tsites 12:11 PM Learning barriers: None tsites 12:11 PM Education methods: Verbal tsites 12:11 PM Education evaluation: Able to repeat information tsites 12:11 PM Patient pain level 0/10 tsites 12:11 PM Site status No bleeding/hematoma - Lt Groin as reported by Hussein Faith RT (R) at 12:11 tsites 12:11 PM Opsite applied tsites 12:16 PM Report given to josh POWERS. Pt taken to Holding room, Room # 4 12:16 tsites 12:16 PM Delay to floor: No tsites 12:16 PM Pt taken to Holding room Room# 4 tsites 12:17 PM no family at this time tsites 12:17 PM Patient out of room 12:17 tsites 12:18 PM Diagram Region: Lower Extremity Arteries Anatomical Region: [id number]-[id number]% occlusion in Distal Right Superficial Femoral Intervention done: 0 (1=yes, 0=no) tsites 12:19 PM Diagram Region: Lower Extremity Arteries Anatomical Region: LE-Art60% Lesion in Proximal Right Superficial Femoral Intervention done: 0 (1=yes, 0=no) tsites 12:19 PM Diagram Region: Lower Extremity Arteries Anatomical Region: [id number]-Cvb527% occlusion in Distal Right Post. Tibial Intervention done: 0 (1=yes, 0=no) tsites 11:13 AM HR=76 bpm, QKOQ=059/104 mmhg, SpO2=95.0 %, Resp=23 B/min, Comment=NSR 11:18 AM HR=76 bpm, TRUV=155/102 mmhg, SpO2=94.0 %, Resp=23 B/min, Comment=NSR 11:20 AM Pressure channel 1 zeroed. 11:23 AM HR=73 bpm, KPYN=840/93 mmhg, SpO2=94.0 %, Resp=18 B/min, EtCO2=33 mmHg, Comment=NSR 11:27 AM HR=63 bpm, YJIU=001/102 mmhg, SpO2=96.0 %, Resp=22 B/min, Comment=NSR 11:28 AM Recorded Pressure: Ao, HR=65, Condition=Condition 1 (Aorta) Ao 164/79/113 11:32 AM Recorded Pressure: Ao, HR=67, Condition=Condition 1 (Aorta) Ao 151/77/108 11:33 AM HR=63 bpm, SXKD=524/78 mmhg, SpO2=97.0 %, EtCO2=26 mmHg, Comment=NSR 11:38 AM HR=63 bpm, OSIA=519/81 mmhg, SpO2=97.0 %, Resp=12 B/min, Comment=NSR 11:42 AM HR=66 bpm, NPBQ=379/90 mmhg, SpO2=95.0 %, Resp=25 B/min, Comment=NSR 11:09 AM PVIStat 11:10 AM Vitals capture started with the following parameters, Patient=Adult, Interval=5 min, Initial Mivlgroq=153 mmHg, Deflation Rate=5 mmHg, Cuff placed on Left Arm 11:11 AM Vitals capture stopped. 11:12 AM Vitals capture started with the following parameters, Patient=Adult, Interval=5 min, Initial Tflhbnsd=374 mmHg, Deflation Rate=5 mmHg, Cuff placed on Left Arm 11:12 AM Recorded ECG: HR=70 Condition=Condition 1 11:48 AM HR=58 bpm, PTJP=564/93 mmhg, SpO2=96.0 %, Resp=22 B/min 11:53 AM HR=68 bpm, RLZL=355/96 mmhg, SpO2=97 %, Resp=21 B/min 11:58 AM HR=56 bpm, SBCT=388/89 mmhg, SpO2=95.0 %, Resp=21 B/min 12:03 PM HR=57 bpm, VIXY=138/90 mmhg, SpO2=96 %, Resp=17 B/min 12:08 PM HR=62 bpm, WHIP=886/98 mmhg, SpO2=96 %, Resp=21 B/min 12:41 PM Arterial sheath pulled using manual compression and V+Pad for 15 minutes by Leyla Savage RT (R) [facility] Hemodynamic Results Site Systolic Diastolic Mean Location Timing Ao 164 79 113 Ao 151 77 108 Peripheral Anatomy Vessel Pathology Lesion Stenosis Aneurysm Diameter Thrombus Type Right Superficial Femoral occlusion 100 Right Superficial Femoral Lesion 70 Right Post. Tibial occlusion 100 Right common femoral artery Lesion 60 Left superficial femoral artery Lesion 75 Post Procedure Information Blood Pressure: 168/98 mmHg Rhythm: NSR Post procedure instructions given Report Given To: Vanita Site Checks Time Location Status Staff Sheath In? Note 12:11:00 PM Lt Groin No bleeding/hematoma Hussein Faith RT (R) 03/03/2019 12:40:00 PM Lt Groin No bleeding/ No Hematoma Leyla Savage RT (R) Pulses Time Site Pre Procedure Post Procedure Note Rt Radial 2+ Bilateral PT Doppler 12:11:00 PM Bilateral DP & PT Doppler Updated by RT Andrea (R) on 03/06/2019 8:45:11 AM electronically signed on 03/06/2019 8:46:09 AM with status of Final
== END 2019-03-04 11:30 | disposition home or self-care (01) | DRG 197 ==
LOC: 2NENU → SUATTDRO 03-03 04:16
PROVIDERS: ADMIT Internal Medicine Nephrology; ATTEND Internal Medicine

== ENCOUNTER 2020-10-01 09:03 | Inpatient (IN) ==
[2020-10-01] MEDS ORDERED: Gabapentin 300 MG CAPSULE PO ONE (09:24)
[2020-10-01] MEDS ORDERED: Acetaminophen IV 1,000 MG/100 ML BAG IVPB ONE (09:24)
[2020-10-01] MEDS ORDERED: Famotidine 20 MG/2 ML VIAL IVP ONE (09:24)
[2020-10-01] MEDS ORDERED: *HR* FentaNYL (PF) 100 MCG/2 ML VIAL ONE ×2 (09:27→14:47)
[2020-10-01] MEDS ORDERED: *HR* Propofol 200 MG/20 ML VIAL IVP ONE (09:27)
[2020-10-01] MEDS ORDERED: *HR* Phenylephrine 10 MG/ML VIAL ONE ×2 (09:28→14:23)
[2020-10-01] MEDS ORDERED: Lidocaine HCL 4 ML Topical Solution (Laryng-O-Jet Kit Sterile Pak) TP ONE (09:28)
[2020-10-01] MEDS ORDERED: Lidocaine -MPF 2% 2 ML VIAL ONE ×3 (09:28→09:43)
[2020-10-01] MEDS ORDERED: Ondansetron 4 MG/2 ML VIAL ONE (09:28)
[2020-10-01] MEDS ORDERED: *HR* Rocuronium Bromide 50 MG/5 ML VIAL ONE (09:28)
[2020-10-01] MEDS ORDERED: Dexamethasone 4 MG/ML VIAL ONE (09:28)
[2020-10-01] MEDS ORDERED: *HR* Heparin 5,000 UNIT/ML VIAL ONE ×2 (09:32→13:49)
[2020-10-01] MEDS ORDERED: Heparin 1,000 UNITS/500 mL 500 ML ONE ×2 (09:33→10:04)
[2020-10-01] MEDS ORDERED: CeFAZolin Syr 2,000MG/20 ML 2,000 MG/20 ML SYRINGE IVPB ONE (09:46)
[2020-10-01] MEDS ORDERED: Albuterol 2.5 MG/3 ML NEBULIZER IH PRN (09:54)
[2020-10-01] MEDS ORDERED: Promethazine 6.25 MG in Water for inj. (sterile) 20 ML IVPB PRN (09:54)
[2020-10-01] MEDS ORDERED: *HR* OxyCODONE Immed Rel 5 MG TABLET PO PRN (09:54)
[2020-10-01] MEDS ORDERED: Ondansetron 4 MG/2 ML VIAL IVP PRN ×2 (09:54→16:27)
[2020-10-01] MEDS ORDERED: *HR* Labetalol 20 MG/4 ML SYRINGE IVP PRN ×2 (09:54→16:27)
[2020-10-01] MEDS ORDERED: Ringers Solution, Lactated 1,000 ML IVC SCH (10:00)
[2020-10-01] MEDS ORDERED: Heparin 1,000 UNITS/500 mL 0 ML ONE ×2 (10:05)
[2020-10-01] MEDS ORDERED: EPHEDrine 50 MG/ML VIAL ONE (10:59)
[2020-10-01] MEDS ORDERED: ceFAZolin 1,000 MG, Sodium Chloride IRRigation 1,000 ML IR ONE (11:00)
[2020-10-01] MEDS ORDERED: Lidocaine Jelly 6ml 1 APPL/6 ML JEL.PF.APP ONE (11:08)
[2020-10-01] MEDS ORDERED: *HR* Magnesium Sulfate 1 GM/2 ML VIAL ONE (11:23)
[2020-10-01] MEDS ORDERED: Albumin Human 5% 12.5 GM/250 ML IV.SOLN ONE ×2 (12:46)
[2020-10-01 13:12] LABS: ABG Base Excess -5 mEq/L (-2 to 3); ABG Chloride 112 mEq/L (98-107); ABG Glucose 120 mg/dL (60-95); ABG HCO3 22 mEq/L (21-27); ABG Ionized Calcium 1.24 mmol/L (1.15-1.35); ABG Oxygen Saturation 99 % (95-98); ABG PCO2 46 mmHg (35-45); ABG PH 7.28 pH Units (7.32-7.45); ABG PO2 167 mmHg (85-104); ABG TCO2 23 mEq/L (20-26)
[2020-10-01] MEDS ORDERED: Sugammadex Sodium 200 MG/2 ML VIAL IV ONE (13:52)
[2020-10-01] MEDS ORDERED: Naloxone 0.4 MG/ML INJ ONE (13:52)
[2020-10-01] MEDS: *HR* HYDROmorphone PF 0.5 MG/0.5 ML SYRINGE IVP PRN ×2 (15:24→15:32)
[2020-10-01] MEDS ORDERED: Melatonin 3 MG TABLET PO PRN (16:27)
[2020-10-01] MEDS ORDERED: Naloxone 0.4 MG/ML INJ IVP PRN (16:27)
[2020-10-01] MEDS ORDERED: Fluticasone Propionate Nasal 50 MCG/SPRAY BOTTLE NS PRN (16:27)
[2020-10-01] MEDS ORDERED: Acetaminophen 325 MG TABLET PO PRN (16:27)
[2020-10-01] MEDS ORDERED: 0.9 % Sodium Chloride 1,000 ML IVC SCH (16:27)
[2020-10-01] MEDS ORDERED: *HR* HYDROcodone/Acet 5/325 mg TABLET PO PRN (16:27)
[2020-10-01] MEDS: Famotidine 20 MG/2 ML VIAL IVP SCH (17:38)
[2020-10-01] MEDS: carvediloL 6.25 MG TABLET PO SCH (17:38)
[2020-10-01] MEDS: CeFAZolin 2 GM/120 ML BAG IVPB SCH (18:14)
[2020-10-01] MEDS: Albuterol 2.5 MG/3 ML NEBULIZER IH SCH (22:17)
[2020-10-01] MEDS: *HR* OxyCODONE Immed Rel 5 MG TABLET PO PRN (22:20)
[2020-10-02] MEDS: CeFAZolin 2 GM/120 ML BAG IVPB SCH (03:08)
[2020-10-02 03:25] LABS: Basophils % 0.3 %; Eosinophils % 0.1 %; Hematocrit 32.7 % (37.5-50.1); Immature Granulocytes % 0.5 % (0-4); Lymphocytes # 1.3 K/mcL (0.6-4.6); Lymphocytes % 9.8 %; Mean Corpuscular HGB Conc 31.5 g/dL (31.6-35.5); Mean Corpuscular Hemoglobin 33.7 pg (28.0-33.3); Mean Corpuscular Volume 106.9 fL (83.0-100.0); Mean Platelet Volume 10.3 fL (9.4-12.4); Monocytes # 1.1 K/mcL (0.0-1.3); Monocytes % 8.2 %; Neutrophils # 11.1 K/mcL (1.6-8.9); Platelet Count 289 K/mcL (140-400); Red Blood Count 3.06 M/mcL (4.19-5.50); Red Cell Distribution Width 15.2 % (11.5-14.5); Segmented Neutrophils % 81.1 %; White Blood Count 13.7 K/mcL (4.3-11.1)
[2020-10-02 03:27] LABS: Hemoglobin 10.3 g/dL (12.9-16.9)
[2020-10-02 03:38] LABS: BUN/Creatinine Ratio 21 (6-26); Blood Urea Nitrogen 28 mg/dL (8-23); Calcium 8.5 mg/dL (8.6-10.3); Carbon Dioxide 23 mEq/L (23-29); Chloride 109 mEq/L (98-107); Glucose 131 mg/dL (70-105); Osmolality,Calculated 289 (280-300); Potassium 4.5 mEq/L (3.5-5.1); Sodium 136 mEq/L (136-145); eGFR For African Americans > 60 (> 60); eGFR For Non-African Americans 56 (> 60)
[2020-10-02] MEDS: Albuterol 2.5 MG/3 ML NEBULIZER IH SCH ×2 (03:40→10:46)
[2020-10-02] MEDS: Famotidine 20 MG/2 ML VIAL IVP SCH (05:14)
[2020-10-02] MEDS: *HR* OxyCODONE Immed Rel 5 MG TABLET PO PRN (05:14)
[2020-10-02 07:40] VITALS: BP 116/82
[2020-10-02] MEDS: carvediloL 6.25 MG TABLET PO SCH (08:24)
[2020-10-02] MEDS ORDERED: hydroCHLOROthiazide 25 MG TABLET PO SCH (09:00)
[2020-10-02] MEDS ORDERED: lisinopriL 20 MG TABLET PO SCH (09:00)
[2020-10-02] MEDS ORDERED: Aspirin Enteric Coated 81 MG Tablet PO SCH (09:00)
[2020-10-02] MEDS ORDERED: Tiotropium 10 INH DOSE IH SCH (10:00)
== END 2020-10-02 10:55 | disposition home or self-care (01) | DRG 181 ==
LOC: SAMDAY 09:03 → 2NNU 16:01
PROVIDERS: ADMIT Surgery Vascular Surgery; ATTEND Surgery Vascular Surgery

== ENCOUNTER 2021-03-23 00:50 | Inpatient (IN) ==
[2021-03-23] MEDS ORDERED: *HR* HYDROcodone/Acet 5/325 mg TABLET PO ONE (02:18)
[2021-03-23 02:24] LABS: Basophils # 0.1 K/mcL (0.0-0.2); Basophils % 0.3 %; Eosinophils # 0.2 K/mcL (0.0-0.6); Eosinophils % 1.3 %; Hematocrit 38.3 % (37.5-50.1); Hemoglobin 12.3 g/dL (12.9-16.9); Immature Granulocytes % 0.5 % (0-4); Lymphocytes # 2.8 K/mcL (0.6-4.6); Lymphocytes % 18.8 %; Mean Corpuscular HGB Conc 32.1 g/dL (31.6-35.5); Mean Corpuscular Hemoglobin 34.8 pg (28.0-33.3); Mean Corpuscular Volume 108.5 fL (83.0-100.0); Mean Platelet Volume 10.6 fL (9.4-12.4); Monocytes # 1.6 K/mcL (0.0-1.3); Monocytes % 10.4 %; Neutrophils # 10.3 K/mcL (1.6-8.9); Platelet Count 335 K/mcL (140-400); Red Blood Count 3.53 M/mcL (4.19-5.50); Red Cell Distribution Width 15.4 % (11.5-14.5); Segmented Neutrophils % 68.7 %
[2021-03-23] MEDS ORDERED: Isovue-370 500 ML BOTTLE IVP ONE (02:24)
[2021-03-23 02:33] LABS: Albumin 3.8 g/dL (3.5-5.7); Albumin/Globulin Ratio 1.1 (1.1-2.2); Bilirubin,Total 0.3 mg/dL (0.3-1.0); Calcium 8.3 mg/dL (8.6-10.3); Globulin 3.6 g/dL (2.4-3.5); Potassium 3.5 mEq/L (3.5-5.1); Total Protein 7.4 g/dL (6.4-8.9)
[2021-03-23] MEDS ORDERED: 0.9 % Sodium Chloride 1,000 ML IVC ONE ×2 (02:46→04:16)
[2021-03-23] MEDS ORDERED: *HR* Heparin 5,000 UNIT/ML VIAL IVP ONE (02:57)
[2021-03-23] MEDS ORDERED: *HR* Heparin 5,000 UNIT/ML VIAL IVP PRN ×2 (02:57)
[2021-03-23] MEDS: Heparin 25,000UNIT/250ML 1/2NS 25,000 UNIT/250 ML IV.SOLN IVC SCH (03:25)
[2021-03-23 03:47] LABS: Heparin anti-factor XA UFH 0.1 IU/mL (0.30-0.70)
[2021-03-23 03:48] LABS: Prothrombin Time 11.4 Seconds (9.4-12.1)
[2021-03-23] MEDS ORDERED: Ondansetron 4 MG/2 ML VIAL IVP PRN (05:08)
[2021-03-23] MEDS ORDERED: Naloxone 0.4 MG/ML INJ IVP PRN (05:08)
[2021-03-23] MEDS ORDERED: *HR* HYDROmorphone (PF) 1 MG/ML SYRINGE IVP PRN (05:32)
[2021-03-23 06:34] LABS: Hematocrit 35.7 % (37.5-50.1); Hemoglobin 11.8 g/dL (12.9-16.9); Mean Corpuscular HGB Conc 33.1 g/dL (31.6-35.5); Mean Corpuscular Hemoglobin 35.2 pg (28.0-33.3); Mean Corpuscular Volume 106.6 fL (83.0-100.0); Mean Platelet Volume 10.1 fL (9.4-12.4); Platelet Count 295 K/mcL (140-400); Red Blood Count 3.35 M/mcL (4.19-5.50); Red Cell Distribution Width 15.4 % (11.5-14.5); White Blood Count 12.4 K/mcL (4.3-11.1)
[2021-03-23] MEDS: 0.9 % Sodium Chloride 1,000 ML IVC SCH ×3 (06:35→17:50)
[2021-03-23 07:47] LABS: Calcium 7.8 mg/dL (8.6-10.3); Potassium 3.5 mEq/L (3.5-5.1)
[2021-03-23] MEDS: Piperacillin/Tazobactam 3.375 GM in 0.9 % Sodium Chloride Mini Bag 100 ML IVPB SCH ×2 (07:47→20:18)
[2021-03-23] MEDS ORDERED: Acetaminophen 325 MG TABLET PO PRN ×2 (10:29)
[2021-03-23] MEDS ORDERED: *HR* HYDROcodone/Acet 5/325 mg TABLET PO PRN ×2 (10:29)
[2021-03-23] MEDS ORDERED: *HR* OxyCODONE Immed Rel 5 MG TABLET PO PRN ×2 (10:29)
[2021-03-23 10:48] LABS: Calcium 7.9 mg/dL (8.6-10.3); Potassium 3.7 mEq/L (3.5-5.1)
[2021-03-23 15:56] LABS: Calcium 7.8 mg/dL (8.6-10.3); Potassium 3.8 mEq/L (3.5-5.1)
[2021-03-23] MEDS ORDERED: *HR* LORazepam 2 MG/ML VIAL IVP ONE (15:56)
[2021-03-23 17:33] LABS: Calcium 7.9 mg/dL (8.6-10.3); Potassium 4.1 mEq/L (3.5-5.1)
[2021-03-23 18:24] LABS: Bilirubin,Urine Negative (Negative); Blood,Urine Large (Negative); Clarity,Urine Clear (Clear); Color,Urine Light-Orange (Yellow); Glucose,Urine (UA) Normal (Normal); Hyaline Casts,Urine Moderate per lpf (None Seen); Ketones,Urine Negative (Negative); Leukocyte Esterase,Urine Negative (Negative); Mucus,Urine Few per lpf (None-Few); Nitrite,Urine Negative (Negative); Protein,Urine 70 mg/dL (Neg-Trace); RBC,Urine 0-3 per hpf (0-3); Specific Gravity,Urine 1.018 (1.010-1.025); Squamous Epithelial Cell,Urine Few per hpf (None-Few); Urobilinogen,Urine Normal (Normal)
[2021-03-23] MEDS: Sodium Bicarbonate 150 MEQ in Water for inj. (sterile) 1,000 ML IVC SCH (20:19)
[2021-03-24 00:41] LABS: Hemoglobin 10.7 g/dL (12.9-16.9); Mean Corpuscular HGB Conc 33.4 g/dL (31.6-35.5); Mean Corpuscular Hemoglobin 35.7 pg (28.0-33.3); Mean Corpuscular Volume 106.7 fL (83.0-100.0); Mean Platelet Volume 10.6 fL (9.4-12.4); Platelet Count 259 K/mcL (140-400); White Blood Count 10.8 K/mcL (4.3-11.1)
[2021-03-24 00:52] LABS: Heparin anti-factor XA UFH 0.33 IU/mL (0.30-0.70); Prothrombin Time 11.7 Seconds (9.4-12.1)
[2021-03-24 00:54] LABS: Calcium 7.7 mg/dL (8.6-10.3); Potassium 3.8 mEq/L (3.5-5.1)
[2021-03-24 00:55] LABS: Activated Partial Thrombo Time 33.3 Seconds (26.0-36.0)
[2021-03-24] MEDS: Heparin 25,000UNIT/250ML 1/2NS 25,000 UNIT/250 ML IV.SOLN IVC SCH (01:05)
[2021-03-24] MEDS: Sodium Bicarbonate 150 MEQ in Water for inj. (sterile) 1,000 ML IVC SCH (06:54)
[2021-03-24] MEDS: Piperacillin/Tazobactam 3.375 GM in 0.9 % Sodium Chloride Mini Bag 100 ML IVPB SCH ×2 (08:19→19:47)
[2021-03-24] MEDS ORDERED: *HR* Rocuronium Bromide 50 MG/5 ML VIAL ONE ×3 (09:24→11:11)
[2021-03-24] MEDS ORDERED: *HR* Propofol 200 MG/20 ML VIAL IVP ONE (09:24)
[2021-03-24] MEDS ORDERED: Ondansetron 4 MG/2 ML VIAL ONE (09:24)
[2021-03-24] MEDS ORDERED: *HR* FentaNYL (PF) 100 MCG/2 ML VIAL ONE (09:24)
[2021-03-24] MEDS ORDERED: *HR* Midazolam HCl 2 MG/2 ML VIAL ONE (09:24)
[2021-03-24] MEDS ORDERED: Lidocaine -MPF 2% 2 ML VIAL ONE (09:24)
[2021-03-24] MEDS ORDERED: *HR* Vasopressin 20 UNIT/ML VIAL ONE (09:35)
[2021-03-24] MEDS ORDERED: Acetaminophen IV 1,000 MG/100 ML BAG IVPB ONE (09:35)
[2021-03-24] MEDS ORDERED: Lidocaine -MPF 4% 5 ML AMPUL ONE (09:42)
[2021-03-24] MEDS ORDERED: Vancomycin 1,000 MG VIAL ONE (09:43)
[2021-03-24] MEDS ORDERED: *HR* HYDROMORPHONE 2 MG/ML VIAL ONE (11:19)
[2021-03-24] MEDS ORDERED: Sugammadex Sodium 200 MG/2 ML VIAL IV ONE (11:24)
[2021-03-24] MEDS: *HR* HYDROmorphone (PF) 1 MG/ML SYRINGE IVP PRN ×4 (12:15→12:30)
[2021-03-24] MEDS ORDERED: Ondansetron 4 MG/2 ML VIAL IVP PRN (13:11)
[2021-03-24] MEDS ORDERED: *HR* LORazepam 2 MG/ML VIAL IVP ONE (13:11)
[2021-03-24] MEDS ORDERED: Sodium Bicarbonate 150 MEQ in Water for inj. (sterile) 1,000 ML IVC SCH (13:11)
[2021-03-24] MEDS ORDERED: Naloxone 0.4 MG/ML INJ IVP PRN (13:11)
[2021-03-24] MEDS: *HR* HYDROcodone/Acet 5/325 mg TABLET PO PRN (16:50)
[2021-03-24] MEDS: *HR* OxyCODONE Immed Rel 5 MG TABLET PO PRN ×2 (18:18→22:19)
[2021-03-25] MEDS: *HR* OxyCODONE Immed Rel 5 MG TABLET PO PRN ×3 (02:24→19:10)
[2021-03-25 05:14] LABS: Basophils % 0.2 %; Eosinophils % 0.2 %; Hematocrit 28.9 % (37.5-50.1); Hemoglobin 9.5 g/dL (12.9-16.9); Immature Granulocytes % 0.5 % (0-4); Lymphocytes # 1.6 K/mcL (0.6-4.6); Mean Corpuscular HGB Conc 32.9 g/dL (31.6-35.5); Mean Corpuscular Hemoglobin 34.9 pg (28.0-33.3); Mean Corpuscular Volume 106.3 fL (83.0-100.0); Monocytes # 1.1 K/mcL (0.0-1.3); Monocytes % 9.4 %; Neutrophils # 9.2 K/mcL (1.6-8.9); Platelet Count 259 K/mcL (140-400); Red Blood Count 2.72 M/mcL (4.19-5.50); Red Cell Distribution Width 14.6 % (11.5-14.5); Segmented Neutrophils % 76.7 %
[2021-03-25 06:01] LABS: Albumin/Globulin Ratio 1.1 (1.1-2.2); Bilirubin,Direct 0.2 mg/dL (0.0-0.2); Bilirubin,Indirect 0.4 mg/dL (0.0-1.0); Bilirubin,Total 0.6 mg/dL (0.3-1.0); Calcium 7.9 mg/dL (8.6-10.3); Globulin 2.7 g/dL (2.4-3.5); Potassium 4.5 mEq/L (3.5-5.1); Total Protein 5.7 g/dL (6.4-8.9)
[2021-03-25] MEDS: Piperacillin/Tazobactam 3.375 GM in 0.9 % Sodium Chloride Mini Bag 100 ML IVPB SCH ×3 (07:34→23:34)
[2021-03-25] MEDS: Aspirin Enteric Coated 81 MG Tablet PO SCH (07:35)
[2021-03-25] MEDS: Metoprolol XL (24 HR) Succ 25 MG TAB.ER.24H PO SCH (07:35)
[2021-03-25] MEDS ORDERED: Aspirin Enteric Coated 81 MG Tablet PO SCH (09:00)
[2021-03-25] MEDS: 0.9 % Sodium Chloride 1,000 ML IVC SCH ×2 (12:03→21:18)
[2021-03-25] MEDS: *HR* HYDROcodone/Acet 5/325 mg TABLET PO PRN ×2 (16:13→22:12)
[2021-03-26] MEDS: *HR* HYDROcodone/Acet 5/325 mg TABLET PO PRN ×4 (03:46→19:41)
[2021-03-26 06:05] LABS: Basophils % 0.3 %; Eosinophils # 0.4 K/mcL (0.0-0.6); Eosinophils % 4.6 %; Hematocrit 29.8 % (37.5-50.1); Hemoglobin 9.7 g/dL (12.9-16.9); Immature Granulocytes % 0.6 % (0-4); Lymphocytes # 1.7 K/mcL (0.6-4.6); Lymphocytes % 19.3 %; Mean Corpuscular HGB Conc 32.6 g/dL (31.6-35.5); Mean Corpuscular Hemoglobin 34.9 pg (28.0-33.3); Mean Corpuscular Volume 107.2 fL (83.0-100.0); Mean Platelet Volume 10.6 fL (9.4-12.4); Monocytes # 0.8 K/mcL (0.0-1.3); Monocytes % 9.7 %; Neutrophils # 5.7 K/mcL (1.6-8.9); Platelet Count 281 K/mcL (140-400); Red Blood Count 2.78 M/mcL (4.19-5.50); Red Cell Distribution Width 14.4 % (11.5-14.5); Segmented Neutrophils % 65.5 %; White Blood Count 8.7 K/mcL (4.3-11.1)
[2021-03-26 06:32] LABS: Albumin 2.8 g/dL (3.5-5.7); Bilirubin,Total 0.4 mg/dL (0.3-1.0); Globulin 2.7 g/dL (2.4-3.5); Potassium 3.8 mEq/L (3.5-5.1); Total Protein 5.5 g/dL (6.4-8.9)
[2021-03-26] MEDS: Metoprolol XL (24 HR) Succ 25 MG TAB.ER.24H PO SCH (08:37)
[2021-03-26] MEDS: Piperacillin/Tazobactam 3.375 GM in 0.9 % Sodium Chloride Mini Bag 100 ML IVPB SCH (08:38)
[2021-03-26] MEDS: Aspirin Enteric Coated 81 MG Tablet PO SCH (08:38)
[2021-03-26] MEDS: Nicotine 21 MG PATCH.TD24 TD SCH (20:57)
[2021-03-26] MEDS: *HR* OxyCODONE Immed Rel 5 MG TABLET PO PRN (21:52)
[2021-03-27] MEDS: *HR* OxyCODONE Immed Rel 5 MG TABLET PO PRN ×3 (02:59→15:20)
[2021-03-27] MEDS: Aspirin Enteric Coated 81 MG Tablet PO SCH (08:14)
[2021-03-27] MEDS: Metoprolol XL (24 HR) Succ 25 MG TAB.ER.24H PO SCH (08:14)
[2021-03-27] MEDS: Nicotine 21 MG PATCH.TD24 TD SCH (08:17)
[2021-03-27] MEDS: *HR* HYDROcodone/Acet 5/325 mg TABLET PO PRN (11:18)
[2021-03-27 15:58] VITALS: BP 152/86
== END 2021-03-27 18:40 | DRG 305 ==
LOC: EMEROOARM 00:50 → 2NNU 00:50 → SUATTDRO 13:00 → 3NENU 03-25 16:28
PROVIDERS: ADMIT Family Medicine; ATTEND Internal Medicine

== ENCOUNTER 2021-04-21 21:08 | Inpatient (IN) ==
[2021-04-21 21:51] LABS: Basophils % 0.4 %; Eosinophils # 0.3 K/mcL (0.0-0.6); Eosinophils % 2.8 %; Hematocrit 25.7 % (37.5-50.1); Hemoglobin 8.1 g/dL (12.9-16.9); Immature Granulocytes % 1.3 % (0-4); Lymphocytes % 8.7 %; Mean Corpuscular HGB Conc 31.5 g/dL (31.6-35.5); Mean Corpuscular Hemoglobin 32.7 pg (28.0-33.3); Mean Corpuscular Volume 103.6 fL (83.0-100.0); Mean Platelet Volume 10.2 fL (9.4-12.4); Monocytes % 9.1 %; Neutrophils # 8.7 K/mcL (1.6-8.9); Platelet Count 347 K/mcL (140-400); Red Blood Count 2.48 M/mcL (4.19-5.50); Red Cell Distribution Width 14.6 % (11.5-14.5); Segmented Neutrophils % 77.7 %; White Blood Count 11.1 K/mcL (4.3-11.1)
[2021-04-21 21:53] LABS: VBG HCO3 17 mEq/L (21-27); VBG PCO2 27 mmHg (41-51); VBG PO2 69 mmHg (25-50)
[2021-04-21 21:55] LABS: Bilirubin,Urine Negative (Negative); Blood,Urine Large (Negative); Clarity,Urine Turbid (Clear); Color,Urine Light-Orange (Yellow); Glucose,Urine (UA) Normal (Normal); Ketones,Urine Negative (Negative); Leukocyte Esterase,Urine Large (Negative); Mucus,Urine Few per lpf (None-Few); Nitrite,Urine Positive (Negative); PH,Urine 7.5 pH Units (5.0-8.0); Protein,Urine 30 mg/dL (Neg-Trace); RBC,Urine 50-100 per hpf (0-3); Urobilinogen,Urine Normal (Normal); WBC,Urine TNTC per hpf (0-3)
[2021-04-21 21:58] LABS: INR 1.2; Prothrombin Time 13.3 Seconds (9.4-12.1)
[2021-04-21] MEDS ORDERED: Ipratropium/Albuterol Neb 3 ML IH ONE (22:01)
[2021-04-21] MEDS ORDERED: Furosemide 20 MG/2 ML VIAL IVP ONE (22:03)
[2021-04-21 22:22] LABS: Albumin 3.1 g/dL (3.5-5.7); Albumin/Globulin Ratio 0.9 (1.1-2.2); Bilirubin,Direct 0.1 mg/dL (0.0-0.2); Bilirubin,Indirect 0.2 mg/dL (0.0-1.0); Bilirubin,Total 0.3 mg/dL (0.3-1.0); Calcium 8.7 mg/dL (8.6-10.3); Globulin 3.6 g/dL (2.4-3.5); Magnesium 2.1 mg/dL (1.6-2.6); Potassium 4.9 mEq/L (3.5-5.1); Total Protein 6.7 g/dL (6.4-8.9); Troponin I 0.05 ng/mL (< 0.04)
[2021-04-21] MEDS ORDERED: *HR* Heparin 5,000 UNIT/ML VIAL IVP ONE (22:37)
[2021-04-21] MEDS ORDERED: *HR* Heparin 5,000 UNIT/ML VIAL IVP PRN ×2 (22:37)
[2021-04-21 22:38] LABS: Adenovirus Not Detected (Not Detect); Bordetella Pertussis Not Detected (Not Detect); Chlamydophila pneumoniae Not Detected (Not Detect); Coronavirus 229E Not Detected (Not Detect); Coronavirus HKU1 Not Detected (Not Detect); Coronavirus NL63 Not Detected (Not Detect); Coronavirus OC43 Not Detected (Not Detect); Human Metapneumovirus Not Detected (Not Detect); Human Rhinovirus/Enterovirus Not Detected (Not Detect); Influenza A Subtype 2009 H1 Not Detected (Not Detect); Influenza B Not Detected (Not Detect); Mycoplasma pneumoniae Not Detected (Not Detect); Parainfluenza Virus 1 Not Detected (Not Detect); Parainfluenza Virus 2 Not Detected (Not Detect); Parainfluenza Virus 3 Not Detected (Not Detect); Parainfluenza Virus 4 Not Detected (Not Detect); Respiratory Syncytial Virus Not Detected (Not Detect); SARS-CoV-2 Not Detected (Not Detect)
[2021-04-21] MEDS ORDERED: Vancomycin 1,500 MG/265 ML IV.SOLN IVPB ONE (23:00)
[2021-04-21] MEDS ORDERED: Cefepime HCl 1,000 MG in Water for inj. (sterile) 10 ML IVP ONE (23:19)
[2021-04-22] MEDS ORDERED: Naloxone 0.4 MG/ML INJ IVP PRN (00:28)
[2021-04-22] MEDS ORDERED: Acetaminophen 325 MG TABLET PO PRN (00:28)
[2021-04-22] MEDS ORDERED: Ondansetron 4 MG/2 ML VIAL IVP PRN (00:28)
[2021-04-22] MEDS ORDERED: *HR* Promethazine 25 MG/ML VIAL IM PRN (00:28)
[2021-04-22 01:43] LABS: Basophils % 0.2 %; Eosinophils # 0.1 K/mcL (0.0-0.6); Eosinophils % 0.9 %; Hemoglobin 7.2 g/dL (12.9-16.9); Immature Granulocytes % 1.3 % (0-4); Lymphocytes # 1.1 K/mcL (0.6-4.6); Lymphocytes % 8.6 %; Mean Corpuscular HGB Conc 32.7 g/dL (31.6-35.5); Mean Corpuscular Hemoglobin 33.8 pg (28.0-33.3); Mean Corpuscular Volume 103.3 fL (83.0-100.0); Mean Platelet Volume 10.2 fL (9.4-12.4); Monocytes # 1.1 K/mcL (0.0-1.3); Neutrophils # 10.1 K/mcL (1.6-8.9); Platelet Count 304 K/mcL (140-400); Red Blood Count 2.13 M/mcL (4.19-5.50); Red Cell Distribution Width 14.6 % (11.5-14.5); White Blood Count 12.6 K/mcL (4.3-11.1)
[2021-04-22 01:50] LABS: INR 1.1; Prothrombin Time 13.1 Seconds (9.4-12.1)
[2021-04-22 02:03] LABS: Albumin 2.7 g/dL (3.5-5.7); Albumin/Globulin Ratio 0.8 (1.1-2.2); Bilirubin,Total 0.3 mg/dL (0.3-1.0); Calcium 8.4 mg/dL (8.6-10.3); Globulin 3.3 g/dL (2.4-3.5); Phosphorous 4.8 mg/dL (2.7-4.5); Potassium 4.8 mEq/L (3.5-5.1)
[2021-04-22] MEDS ORDERED: Perflutren Lipid Microsphere 1.3 ML in 0.9 % Sodium Chloride 8.7 ML IVP PRN (03:05)
[2021-04-22] MEDS: Heparin 25,000UNIT/250ML 1/2NS 25,000 UNIT/250 ML IV.SOLN IVC SCH ×2 (04:06→23:23)
[2021-04-22] MEDS ORDERED: Cefepime HCl 1,000 MG in Water for inj. (sterile) 10 ML IVP SCH (06:00)
[2021-04-22] MEDS: Furosemide 40 MG/4 ML VIAL IVP SCH ×2 (07:50→17:21)
[2021-04-22] MEDS: Aspirin Enteric Coated 81 MG Tablet PO SCH (07:51)
[2021-04-22] MEDS ORDERED: MethylPREDNISolone 40 MG/ML VIAL IVP SCH (08:00)
[2021-04-22] MEDS ORDERED: Tiotropium 10 INH DOSE IH SCH (09:00)
[2021-04-22] MEDS ORDERED: Pantoprazole 40 MG VIAL IVP SCH (09:00)
[2021-04-22 10:40] LABS: Hematocrit 24.4 % (37.5-50.1); Hemoglobin 7.6 g/dL (12.9-16.9)
[2021-04-22] MEDS: Ipratropium/Albuterol Neb 3 ML IH SCH ×4 (10:47→19:48)
[2021-04-22 14:18] LABS: Protein/Creatinine Ratio,Urine 1.27 mg/mg (0.00-0.20); Sodium, Urine 99.8 mEq/L
[2021-04-22 14:21] LABS: Hematocrit 25.5 % (37.5-50.1); Hemoglobin 8.1 g/dL (12.9-16.9)
[2021-04-22] MEDS ORDERED: Fluticasone Propionate Nasal 50 MCG/SPRAY BOTTLE NS PRN (15:13)
[2021-04-22] MEDS ORDERED: hydrOXYzine pamoate 25 MG CAPSULE PO PRN (15:13)
[2021-04-22] MEDS: Piperacillin/Tazobactam 3.375 GM in 0.9 % Sodium Chloride Mini Bag 100 ML IVPB SCH (17:20)
[2021-04-22 18:06] LABS: Hematocrit 25.7 % (37.5-50.1); Hemoglobin 8.5 g/dL (12.9-16.9)
[2021-04-22 18:12] LABS: Enterococcus by PCR Not Detected (Not Detect); Staphylococcus by PCR DETECTED (Not Detect); mecA Methicillin-Resist Gene DETECTED (Not Detect)
[2021-04-22 18:13] LABS: Acinetobacter baumannii by PCR Not Detected (Not Detect); Candida albicans by PCR Not Detected (Not Detect); Candida glabrata by PCR Not Detected (Not Detect); Candida krusei by PCR Not Detected (Not Detect); Candida parapsilosis by PCR Not Detected (Not Detect); Candida tropicalis by PCR Not Detected (Not Detect); Enterobacter cloacae Cmplx PCR Not Detected (Not Detect); Enterobacteriaceae by PCR Not Detected (Not Detect); Escherichia coli by PCR Not Detected (Not Detect); Klebsiella oxytoca by PCR Not Detected (Not Detect); Klebsiella pneumoniae by PCR Not Detected (Not Detect); Proteus by PCR Not Detected (Not Detect); Pseudomonas aeruginosa by PCR Not Detected (Not Detect); Serratia marcescens by PCR Not Detected (Not Detect); Staphylococcus aureus by PCR Not Detected (Not Detect); Streptococcus agalactiae(B)PCR Not Detected (Not Detect); Streptococcus by PCR Not Detected (Not Detect); Streptococcus pneumoniae PCR Not Detected (Not Detect); Streptococcus pyogenes (A) PCR Not Detected (Not Detect)
[2021-04-22] MEDS: Gabapentin 300 MG CAPSULE PO SCH (21:39)
[2021-04-22] MEDS ORDERED: methylPREDNISolone 125 MG/2 ML VIAL IVP ONE (22:02)
[2021-04-23] MEDS: Ipratropium/Albuterol Neb 3 ML IH SCH ×6 (00:11→20:03)
[2021-04-23] MEDS: Piperacillin/Tazobactam 3.375 GM in 0.9 % Sodium Chloride Mini Bag 100 ML IVPB SCH ×2 (04:08→16:30)
[2021-04-23 05:48] LABS: % Iron Saturation 8 % (20-55); Iron 18 mcg/dL (65-175); Transferrin 166 mg/dL (203-362)
[2021-04-23 05:49] LABS: Calcium 8.6 mg/dL (8.6-10.3); Magnesium 2.1 mg/dL (1.6-2.6); Phosphorous 5.3 mg/dL (2.7-4.5); Potassium 4.4 mEq/L (3.5-5.1)
[2021-04-23 05:58] LABS: Basophils % 0.2 %; Eosinophils % 0.1 %; Hematocrit 21.6 % (37.5-50.1); Hemoglobin 7.3 g/dL (12.9-16.9); Immature Granulocytes % 2.8 % (0-4); Mean Corpuscular HGB Conc 33.8 g/dL (31.6-35.5); Mean Corpuscular Volume 97.7 fL (83.0-100.0); Mean Platelet Volume 10.6 fL (9.4-12.4); Monocytes # 1.5 K/mcL (0.0-1.3); Monocytes % 9.4 %; Neutrophils # 12.4 K/mcL (1.6-8.9); Platelet Count 368 K/mcL (140-400); Red Blood Count 2.21 M/mcL (4.19-5.50); Red Cell Distribution Width 14.6 % (11.5-14.5); Segmented Neutrophils % 75.5 %; White Blood Count 16.4 K/mcL (4.3-11.1)
[2021-04-23] MEDS: Metoprolol XL (24 HR) Succ 25 MG TAB.ER.24H PO SCH (08:23)
[2021-04-23] MEDS: Gabapentin 300 MG CAPSULE PO SCH ×2 (08:23→20:32)
[2021-04-23] MEDS: Loratadine 10 MG TABLET PO SCH (08:24)
[2021-04-23] MEDS: Aspirin Enteric Coated 81 MG Tablet PO SCH (08:24)
[2021-04-23] MEDS: predniSONE 20 MG TABLET PO SCH (08:24)
[2021-04-23] MEDS: Furosemide 40 MG/4 ML VIAL IVP SCH ×2 (08:24→16:30)
[2021-04-23] MEDS ORDERED: Perflutren Lipid Microsphere 1.3 ML in 0.9 % Sodium Chloride 8.7 ML IVP PRN ×2 (10:20→14:46)
[2021-04-23] MEDS ORDERED: Vancomycin 1 EACH in 0.9 % Sodium Chloride 250 ML IVPB PRN (11:00)
[2021-04-23] MEDS ORDERED: Vancomycin 1,250 MG/262.5 ML IV.SOLN IVPB ONE (12:00)
[2021-04-23] MEDS: Albumin 25% 25gram/100mL 25 GM/100 ML IV.SOLN IVPB SCH (14:27)
[2021-04-23] MEDS: Finasteride 5 MG TABLET PO SCH (16:02)
[2021-04-23] MEDS: *HR* Heparin 5,000 UNIT/ML VIAL SQ SCH (16:30)
[2021-04-23] MEDS ORDERED: Furosemide 40 MG/4 ML VIAL IVP SCH (17:00)
[2021-04-23] MEDS ORDERED: Naloxone 0.4 MG/ML INJ IVP PRN (21:51)
[2021-04-23] MEDS: *HR* OxyCODONE/APAP 5/325 TABLET PO PRN (22:23)
[2021-04-24] MEDS: Ipratropium/Albuterol Neb 3 ML IH SCH ×7 (00:02→23:04)
[2021-04-24 04:36] LABS: Basophils % 0.2 %; Eosinophils # 0.1 K/mcL (0.0-0.6); Eosinophils % 0.5 %; Hematocrit 21.7 % (37.5-50.1); Immature Granulocytes % 2.7 % (0-4); Lymphocytes # 2.6 K/mcL (0.6-4.6); Lymphocytes % 18.1 %; Mean Corpuscular HGB Conc 32.3 g/dL (31.6-35.5); Mean Corpuscular Hemoglobin 31.5 pg (28.0-33.3); Mean Corpuscular Volume 97.7 fL (83.0-100.0); Mean Platelet Volume 10.1 fL (9.4-12.4); Monocytes # 1.2 K/mcL (0.0-1.3); Monocytes % 8.3 %; Neutrophils # 9.9 K/mcL (1.6-8.9); Platelet Count 445 K/mcL (140-400); Red Blood Count 2.22 M/mcL (4.19-5.50); Red Cell Distribution Width 14.4 % (11.5-14.5); Segmented Neutrophils % 70.2 %; White Blood Count 14.1 K/mcL (4.3-11.1)
[2021-04-24 04:58] LABS: Calcium 8.8 mg/dL (8.6-10.3); Magnesium 1.9 mg/dL (1.6-2.6); Phosphorous 4.9 mg/dL (2.7-4.5); Potassium 3.8 mEq/L (3.5-5.1)
[2021-04-24] MEDS: *HR* OxyCODONE/APAP 5/325 TABLET PO PRN ×3 (05:11→18:50)
[2021-04-24] MEDS: *HR* Heparin 5,000 UNIT/ML VIAL SQ SCH ×2 (05:12→17:38)
[2021-04-24] MEDS: Albumin 25% 25gram/100mL 25 GM/100 ML IV.SOLN IVPB SCH (05:12)
[2021-04-24] MEDS: Piperacillin/Tazobactam 3.375 GM in 0.9 % Sodium Chloride Mini Bag 100 ML IVPB SCH ×3 (05:12→21:49)
[2021-04-24] MEDS: Metoprolol XL (24 HR) Succ 25 MG TAB.ER.24H PO SCH (08:35)
[2021-04-24] MEDS: Loratadine 10 MG TABLET PO SCH (08:35)
[2021-04-24] MEDS: predniSONE 20 MG TABLET PO SCH (08:35)
[2021-04-24] MEDS: Gabapentin 300 MG CAPSULE PO SCH ×2 (08:35→21:43)
[2021-04-24] MEDS: Finasteride 5 MG TABLET PO SCH (08:35)
[2021-04-24] MEDS: Aspirin Enteric Coated 81 MG Tablet PO SCH (08:36)
[2021-04-24] MEDS: Furosemide 40 MG/4 ML VIAL IVP SCH (08:36)
[2021-04-25] MEDS ORDERED: Vancomycin 1,250 MG/262.5 ML IV.SOLN IVPB ONE
[2021-04-25] MEDS: *HR* OxyCODONE/APAP 5/325 TABLET PO PRN ×3 (01:04→20:57)
[2021-04-25] MEDS: Ipratropium/Albuterol Neb 3 ML IH SCH ×6 (03:53→23:37)
[2021-04-25 05:36] LABS: Basophils % 0.2 %; Eosinophils # 0.2 K/mcL (0.0-0.6); Eosinophils % 1.6 %; Hematocrit 22.6 % (37.5-50.1); Hemoglobin 7.6 g/dL (12.9-16.9); Immature Granulocytes % 4.4 % (0-4); Lymphocytes # 3.6 K/mcL (0.6-4.6); Lymphocytes % 25.7 %; Mean Corpuscular HGB Conc 33.6 g/dL (31.6-35.5); Mean Corpuscular Hemoglobin 32.5 pg (28.0-33.3); Mean Corpuscular Volume 96.6 fL (83.0-100.0); Mean Platelet Volume 10.1 fL (9.4-12.4); Monocytes % 7.4 %; Neutrophils # 8.4 K/mcL (1.6-8.9); Platelet Count 522 K/mcL (140-400); Red Blood Count 2.34 M/mcL (4.19-5.50); Red Cell Distribution Width 14.4 % (11.5-14.5); Segmented Neutrophils % 60.7 %; White Blood Count 13.9 K/mcL (4.3-11.1)
[2021-04-25 05:43] LABS: Calcium 8.7 mg/dL (8.6-10.3); Magnesium 1.7 mg/dL (1.6-2.6); Phosphorous 3.8 mg/dL (2.7-4.5); Potassium 4.2 mEq/L (3.5-5.1)
[2021-04-25 05:57] LABS: Platelet Estimate Marked Increase (Normal); Reactive Lymphocytes Present (Not Present)
[2021-04-25] MEDS: *HR* Heparin 5,000 UNIT/ML VIAL SQ SCH ×2 (06:31→16:55)
[2021-04-25] MEDS: Piperacillin/Tazobactam 3.375 GM in 0.9 % Sodium Chloride Mini Bag 100 ML IVPB SCH ×3 (06:34→21:15)
[2021-04-25] MEDS: Aspirin Enteric Coated 81 MG Tablet PO SCH (09:05)
[2021-04-25] MEDS: Finasteride 5 MG TABLET PO SCH (09:05)
[2021-04-25] MEDS: Loratadine 10 MG TABLET PO SCH (09:06)
[2021-04-25] MEDS: Gabapentin 300 MG CAPSULE PO SCH ×2 (09:06→20:57)
[2021-04-25] MEDS: Metoprolol XL (24 HR) Succ 25 MG TAB.ER.24H PO SCH (09:06)
[2021-04-25] MEDS: predniSONE 20 MG TABLET PO SCH (09:06)
[2021-04-26] MEDS ORDERED: Vancomycin 1,250 MG/262.5 ML IV.SOLN IVPB SCH (01:00)
[2021-04-26 03:03] LABS: Basophils % 0.2 %; Eosinophils # 0.1 K/mcL (0.0-0.6); Eosinophils % 0.5 %; Hemoglobin 7.7 g/dL (12.9-16.9); Immature Granulocytes % 3.6 % (0-4); Lymphocytes # 2.8 K/mcL (0.6-4.6); Lymphocytes % 15.8 %; Mean Corpuscular HGB Conc 32.1 g/dL (31.6-35.5); Mean Corpuscular Hemoglobin 32.1 pg (28.0-33.3); Monocytes # 1.3 K/mcL (0.0-1.3); Monocytes % 7.4 %; Neutrophils # 12.7 K/mcL (1.6-8.9); Platelet Count 571 K/mcL (140-400); Red Cell Distribution Width 14.2 % (11.5-14.5); Segmented Neutrophils % 72.5 %; White Blood Count 17.5 K/mcL (4.3-11.1)
[2021-04-26] MEDS: *HR* OxyCODONE/APAP 5/325 TABLET PO PRN ×3 (03:11→15:48)
[2021-04-26 03:20] LABS: Calcium 8.8 mg/dL (8.6-10.3); Magnesium 1.6 mg/dL (1.6-2.6); Phosphorous 3.8 mg/dL (2.7-4.5)
[2021-04-26] MEDS: Ipratropium/Albuterol Neb 3 ML IH SCH ×4 (03:49→15:56)
[2021-04-26] MEDS: Piperacillin/Tazobactam 3.375 GM in 0.9 % Sodium Chloride Mini Bag 100 ML IVPB SCH ×2 (05:02→14:41)
[2021-04-26] MEDS: *HR* Heparin 5,000 UNIT/ML VIAL SQ SCH (06:19)
[2021-04-26] MEDS: Aspirin Enteric Coated 81 MG Tablet PO SCH (08:30)
[2021-04-26] MEDS: Loratadine 10 MG TABLET PO SCH (08:30)
[2021-04-26] MEDS: Gabapentin 300 MG CAPSULE PO SCH (08:30)
[2021-04-26] MEDS: predniSONE 20 MG TABLET PO SCH (08:31)
[2021-04-26] MEDS: Metoprolol XL (24 HR) Succ 25 MG TAB.ER.24H PO SCH (08:31)
[2021-04-26] MEDS: Finasteride 5 MG TABLET PO SCH (08:31)
[2021-04-26 11:22] VITALS: BP 155/73; PULSE 89; TEMP 98.4
[2021-04-26 17:50] VITALS: O2SAT 94
== END 2021-04-26 16:29 | disposition left against medical advice (07) | DRG 720 ==
LOC: 2ANU 21:08 → EMEROOARM 21:08 → 2ANU 04-22 01:04
PROVIDERS: ADMIT Family Medicine; ATTEND Family Medicine

== ENCOUNTER 2021-04-29 21:26 | Observation (INO) ==
[2021-04-29] MEDS ORDERED: Naloxone 0.4 MG/ML INJ IVP PRN (23:15)
[2021-04-29] MEDS ORDERED: Ondansetron 4 MG/2 ML VIAL IVP PRN (23:15)
[2021-04-29] MEDS: Acetaminophen 325 MG TABLET PO PRN (23:43)
[2021-04-29] MEDS: Melatonin 3 MG TABLET PO PRN (23:44)
[2021-04-30] MEDS: Thiamine (B-1) 100 MG, Folic Acid 1 MG, MVI, adult with vitamin K 10 ML in 0.9 % Sodi... IVPB SCH ×2 (01:47→17:10)
[2021-04-30 06:53] LABS: Basophils # 0.1 K/mcL (0.0-0.2); Basophils % 0.3 %; Eosinophils # 0.6 K/mcL (0.0-0.6); Hemoglobin 8.2 g/dL (12.9-16.9); Immature Granulocytes % 1.2 % (0-4); Lymphocytes % 20.2 %; Mean Corpuscular HGB Conc 31.5 g/dL (31.6-35.5); Mean Corpuscular Hemoglobin 32.4 pg (28.0-33.3); Mean Corpuscular Volume 102.8 fL (83.0-100.0); Mean Platelet Volume 9.8 fL (9.4-12.4); Monocytes # 1.1 K/mcL (0.0-1.3); Monocytes % 7.7 %; Neutrophils # 9.7 K/mcL (1.6-8.9); Platelet Count 649 K/mcL (140-400); Red Blood Count 2.53 M/mcL (4.19-5.50); Red Cell Distribution Width 14.9 % (11.5-14.5); Segmented Neutrophils % 66.6 %; White Blood Count 14.6 K/mcL (4.3-11.1)
[2021-04-30 07:09] LABS: BUN/Creatinine Ratio 20 (6-26); Blood Urea Nitrogen 24 mg/dL (8-23); Calcium 8.9 mg/dL (8.6-10.3); Carbon Dioxide 18 mEq/L (23-29); Chloride 112 mEq/L (98-107); Glucose 101 mg/dL (70-105); Magnesium 1.8 mg/dL (1.6-2.6); Osmolality,Calculated 290 (280-300); Phosphorous 3.6 mg/dL (2.7-4.5); Sodium 138 mEq/L (136-145); eGFR For African Americans > 60 (> 60); eGFR For Non-African Americans 60 (> 60)
[2021-04-30] MEDS: Finasteride 5 MG TABLET PO SCH (07:33)
[2021-04-30] MEDS: Acetaminophen 325 MG TABLET PO PRN (07:35)
[2021-04-30] MEDS ORDERED: Fluticasone Propionate Nasal 50 MCG/SPRAY BOTTLE NS PRN (08:44)
[2021-04-30] MEDS ORDERED: hydrOXYzine pamoate 25 MG CAPSULE PO PRN (08:44)
[2021-04-30] MEDS ORDERED: Folic Acid 1 MG TABLET PO SCH (09:00)
[2021-04-30] MEDS: Loratadine 10 MG TABLET PO SCH (09:23)
[2021-04-30] MEDS: lisinopriL 5 MG TABLET PO SCH (09:24)
[2021-04-30] MEDS: Metoprolol XL (24 HR) Succ 25 MG TAB.ER.24H PO SCH (09:24)
[2021-04-30] MEDS: Aspirin Enteric Coated 81 MG Tablet PO SCH (09:24)
[2021-04-30] MEDS: Gabapentin 300 MG CAPSULE PO SCH ×3 (09:24→20:27)
[2021-04-30] MEDS: Tiotropium 10 INH DOSE IH SCH (10:43)
[2021-05-01 01:18] LABS: Basophils % 0.3 %; Eosinophils # 0.5 K/mcL (0.0-0.6); Eosinophils % 4.6 %; Hematocrit 23.8 % (37.5-50.1); Hemoglobin 7.7 g/dL (12.9-16.9); Lymphocytes # 2.5 K/mcL (0.6-4.6); Lymphocytes % 24.1 %; Mean Corpuscular HGB Conc 32.4 g/dL (31.6-35.5); Mean Corpuscular Hemoglobin 32.8 pg (28.0-33.3); Mean Corpuscular Volume 101.3 fL (83.0-100.0); Mean Platelet Volume 9.6 fL (9.4-12.4); Monocytes % 10.2 %; Neutrophils # 6.1 K/mcL (1.6-8.9); Platelet Count 541 K/mcL (140-400); Red Blood Count 2.35 M/mcL (4.19-5.50); Red Cell Distribution Width 15.4 % (11.5-14.5); Segmented Neutrophils % 59.8 %; White Blood Count 10.2 K/mcL (4.3-11.1)
[2021-05-01 01:45] LABS: Platelet Estimate Increased (Normal); Reactive Lymphocytes Present (Not Present); Smudge Cells Present (Not Present)
[2021-05-01] MEDS: Finasteride 5 MG TABLET PO SCH (07:15)
[2021-05-01] MEDS: Loratadine 10 MG TABLET PO SCH (07:15)
[2021-05-01] MEDS: Gabapentin 300 MG CAPSULE PO SCH ×3 (07:15→20:26)
[2021-05-01] MEDS: Aspirin Enteric Coated 81 MG Tablet PO SCH (07:15)
[2021-05-01] MEDS: lisinopriL 5 MG TABLET PO SCH (07:16)
[2021-05-01] MEDS: Metoprolol XL (24 HR) Succ 25 MG TAB.ER.24H PO SCH (07:16)
[2021-05-01] MEDS: Tiotropium 10 INH DOSE IH SCH (08:03)
[2021-05-01 13:25] LABS: Adenovirus F 40/41 PCR Not detected (Not detect); Astrovirus PCR Not detected (Not detect); C.difficile Toxin A/B Gene PCR DETECTED (Not detect); Campylobacter by PCR Not detected (Not detect); Cryptosporidium by PCR Not detected (Not detect); Cyclospora cayetanensis PCR Not detected (Not detect); E. coli O157 by PCR Not detected (Not detect); Entamoeba histolytica PCR Not detected (Not detect); Enteroaggregative E.coli(EAEC) Not detected (Not detect); Enteropathogenic E.coli(EPEC) Not detected (Not detect); Enterotoxigenic E.coli (ETEC) Not detected (Not detect); Giardia lamblia PCR Not detected (Not detect); Norovirus GI/GII PCR Not detected (Not detect); Plesiomonas shigelloides PCR Not detected (Not detect); Rotavirus A PCR Not detected (Not detect); Salmonella PCR Not detected (Not detect); Sapovirus PCR Not detected (Not detect); Shig/EnteroinvasiveE coli EIEC Not detected (Not detect); Shigalike tox-prod E coli STEC Not detected (Not detect); Vibrio PCR Not detected (Not detect); Vibrio cholerae PCR Not detected (Not detect); Yersinia enterocolitica PCR Not detected (Not detect)
[2021-05-01] MEDS: Vancomycin Oral Soln 125 MG/2.5 ML UDC PO SCH ×3 (14:26→20:26)
[2021-05-01] MEDS: Thiamine (B-1) 100 MG, Folic Acid 1 MG, MVI, adult with vitamin K 10 ML in 0.9 % Sodi... IVPB SCH (17:00)
[2021-05-02 06:57] LABS: BUN/Creatinine Ratio 16 (6-26); Blood Urea Nitrogen 21 mg/dL (8-23); Carbon Dioxide 23 mEq/L (23-29); Chloride 108 mEq/L (98-107); Glucose 109 mg/dL (70-105); Magnesium 1.6 mg/dL (1.6-2.6); Osmolality,Calculated 286 (280-300); Potassium 4.8 mEq/L (3.5-5.1); Sodium 136 mEq/L (136-145); eGFR For African Americans > 60 (> 60); eGFR For Non-African Americans 55 (> 60)
[2021-05-02] MEDS: Finasteride 5 MG TABLET PO SCH (07:22)
[2021-05-02] MEDS: Aspirin Enteric Coated 81 MG Tablet PO SCH (07:22)
[2021-05-02] MEDS: Vancomycin Oral Soln 125 MG/2.5 ML UDC PO SCH ×4 (07:22→20:27)
[2021-05-02] MEDS: lisinopriL 5 MG TABLET PO SCH (07:23)
[2021-05-02] MEDS: Gabapentin 300 MG CAPSULE PO SCH ×3 (07:23→20:27)
[2021-05-02] MEDS: Metoprolol XL (24 HR) Succ 25 MG TAB.ER.24H PO SCH (07:23)
[2021-05-02] MEDS: Loratadine 10 MG TABLET PO SCH (07:23)
[2021-05-02] MEDS: Tiotropium 10 INH DOSE IH SCH (07:30)
[2021-05-02 08:12] LABS: Hematocrit 26.9 % (37.5-50.1); Hemoglobin 8.7 g/dL (12.9-16.9)
[2021-05-03] MEDS: lisinopriL 5 MG TABLET PO SCH (08:51)
[2021-05-03] MEDS: Finasteride 5 MG TABLET PO SCH (08:51)
[2021-05-03] MEDS: Aspirin Enteric Coated 81 MG Tablet PO SCH (08:51)
[2021-05-03] MEDS: Metoprolol XL (24 HR) Succ 25 MG TAB.ER.24H PO SCH (08:51)
[2021-05-03] MEDS: Gabapentin 300 MG CAPSULE PO SCH ×3 (08:52→19:41)
[2021-05-03] MEDS: Vancomycin Oral Soln 125 MG/2.5 ML UDC PO SCH ×4 (08:52→19:41)
[2021-05-03] MEDS: Loratadine 10 MG TABLET PO SCH (08:52)
[2021-05-03] MEDS: Tiotropium 10 INH DOSE IH SCH (10:32)
[2021-05-03] MEDS: *HR* OxyCODONE Immed Rel 5 MG TABLET PO PRN ×2 (14:10→22:20)
[2021-05-04] MEDS: Acetaminophen 325 MG TABLET PO PRN ×2 (03:14→23:12)
[2021-05-04] MEDS: *HR* OxyCODONE Immed Rel 5 MG TABLET PO PRN ×2 (06:27→18:07)
[2021-05-04] MEDS: Tiotropium 10 INH DOSE IH SCH (07:47)
[2021-05-04] MEDS: lisinopriL 5 MG TABLET PO SCH (08:44)
[2021-05-04] MEDS: Gabapentin 300 MG CAPSULE PO SCH ×3 (08:44→21:26)
[2021-05-04] MEDS: Metoprolol XL (24 HR) Succ 25 MG TAB.ER.24H PO SCH (08:44)
[2021-05-04] MEDS: Aspirin Enteric Coated 81 MG Tablet PO SCH (08:44)
[2021-05-04] MEDS: Loratadine 10 MG TABLET PO SCH (08:44)
[2021-05-04] MEDS: Vancomycin Oral Soln 125 MG/2.5 ML UDC PO SCH ×4 (08:44→21:26)
[2021-05-04] MEDS: Finasteride 5 MG TABLET PO SCH (08:44)
[2021-05-04 11:22] LABS: Hematocrit 27.4 % (37.5-50.1); Hemoglobin 8.5 g/dL (12.9-16.9); Mean Corpuscular Hemoglobin 32.3 pg (28.0-33.3); Mean Corpuscular Volume 104.2 fL (83.0-100.0); Mean Platelet Volume 9.7 fL (9.4-12.4); Platelet Count 530 K/mcL (140-400); Red Blood Count 2.63 M/mcL (4.19-5.50); Red Cell Distribution Width 15.3 % (11.5-14.5); White Blood Count 7.4 K/mcL (4.3-11.1)
[2021-05-04 11:43] LABS: BUN/Creatinine Ratio 12 (6-26); Blood Urea Nitrogen 14 mg/dL (8-23); Calcium 8.9 mg/dL (8.6-10.3); Carbon Dioxide 21 mEq/L (23-29); Chloride 109 mEq/L (98-107); Glucose 92 mg/dL (70-105); Osmolality,Calculated 286 (280-300); Potassium 4.8 mEq/L (3.5-5.1); Sodium 138 mEq/L (136-145); eGFR For African Americans > 60 (> 60); eGFR For Non-African Americans > 60 (> 60)
[2021-05-05] MEDS: *HR* OxyCODONE Immed Rel 5 MG TABLET PO PRN ×3 (02:25→18:18)
[2021-05-05] MEDS: Acetaminophen 325 MG TABLET PO PRN (08:06)
[2021-05-05 08:32] LABS: Hematocrit 30.1 % (37.5-50.1); Hemoglobin 9.3 g/dL (12.9-16.9)
[2021-05-05] MEDS: Loratadine 10 MG TABLET PO SCH (08:32)
[2021-05-05] MEDS: Finasteride 5 MG TABLET PO SCH (08:32)
[2021-05-05] MEDS: lisinopriL 5 MG TABLET PO SCH (08:32)
[2021-05-05] MEDS: Aspirin Enteric Coated 81 MG Tablet PO SCH (08:32)
[2021-05-05] MEDS: Gabapentin 300 MG CAPSULE PO SCH ×3 (08:32→21:40)
[2021-05-05] MEDS: Vancomycin Oral Soln 125 MG/2.5 ML UDC PO SCH ×4 (08:33→21:40)
[2021-05-05] MEDS: Metoprolol XL (24 HR) Succ 25 MG TAB.ER.24H PO SCH (08:33)
[2021-05-05] MEDS: Tiotropium 10 INH DOSE IH SCH (10:48)
[2021-05-06] MEDS: *HR* OxyCODONE Immed Rel 5 MG TABLET PO PRN ×3 (02:38→18:53)
[2021-05-06] MEDS: Tiotropium 10 INH DOSE IH SCH (07:32)
[2021-05-06] MEDS: Aspirin Enteric Coated 81 MG Tablet PO SCH (08:21)
[2021-05-06] MEDS: Loratadine 10 MG TABLET PO SCH (08:22)
[2021-05-06] MEDS: Finasteride 5 MG TABLET PO SCH (08:22)
[2021-05-06] MEDS: Gabapentin 300 MG CAPSULE PO SCH ×3 (08:22→21:43)
[2021-05-06] MEDS: Metoprolol XL (24 HR) Succ 25 MG TAB.ER.24H PO SCH (08:22)
[2021-05-06] MEDS: lisinopriL 5 MG TABLET PO SCH (08:22)
[2021-05-06] MEDS: Vancomycin Oral Soln 125 MG/2.5 ML UDC PO SCH ×4 (08:23→21:42)
[2021-05-06] MEDS: Acetaminophen 325 MG TABLET PO PRN (22:58)
[2021-05-07] MEDS: *HR* OxyCODONE Immed Rel 5 MG TABLET PO PRN ×2 (03:13→13:47)
[2021-05-07] MEDS: Tiotropium 10 INH DOSE IH SCH (07:34)
[2021-05-07] MEDS: Gabapentin 300 MG CAPSULE PO SCH ×3 (09:17→19:54)
[2021-05-07] MEDS: Aspirin Enteric Coated 81 MG Tablet PO SCH (09:17)
[2021-05-07] MEDS: Finasteride 5 MG TABLET PO SCH (09:17)
[2021-05-07] MEDS: Metoprolol XL (24 HR) Succ 25 MG TAB.ER.24H PO SCH (09:17)
[2021-05-07] MEDS: lisinopriL 5 MG TABLET PO SCH (09:17)
[2021-05-07] MEDS: Loratadine 10 MG TABLET PO SCH (09:18)
[2021-05-07] MEDS: Vancomycin Oral Soln 125 MG/2.5 ML UDC PO SCH ×4 (09:35→19:55)
[2021-05-07] MEDS: Melatonin 3 MG TABLET PO PRN (19:54)
[2021-05-08] MEDS: *HR* OxyCODONE Immed Rel 5 MG TABLET PO PRN (03:27)
[2021-05-08] MEDS: Tiotropium 10 INH DOSE IH SCH (07:37)
[2021-05-08 07:39] VITALS: O2SAT 97
[2021-05-08] MEDS: Aspirin Enteric Coated 81 MG Tablet PO SCH (09:26)
[2021-05-08] MEDS: Gabapentin 300 MG CAPSULE PO SCH (09:27)
[2021-05-08] MEDS: Loratadine 10 MG TABLET PO SCH (09:28)
[2021-05-08] MEDS: Metoprolol XL (24 HR) Succ 25 MG TAB.ER.24H PO SCH (09:28)
[2021-05-08] MEDS: Finasteride 5 MG TABLET PO SCH (09:30)
[2021-05-08] MEDS: Vancomycin Oral Soln 125 MG/2.5 ML UDC PO SCH ×2 (09:31→13:35)
[2021-05-08] MEDS: lisinopriL 5 MG TABLET PO SCH (09:31)
[2021-05-08 10:36] VITALS: BP 131/82; PULSE 73; TEMP 98
[2021-05-08 12:30] LABS: Influenza A PCR Negative (Negative); Influenza B PCR Negative (Negative); Resp. Syncytial Virus PCR Negative (Negative)
[2021-05-08 12:39] LABS: SARS-CoV-2 by PCR (In House) Negative (Negative)
== END 2021-05-08 14:56 ==
LOC: EMEROOARM 21:26 → 3BNU 21:26 → SUATTDRO 21:54 → 3BNU 22:23
PROVIDERS: ADMIT Internal Medicine; ATTEND Registered Nurse

== ENCOUNTER 2021-11-04 06:03 | Inpatient (IN) ==
[~2021-11-04 06:03] MED LIST: ceFAZolin 1,000 MG, Sodium Chloride IRRigation 1,000 ML IR ONE
[2021-11-04] MEDS ORDERED: CeFAZolin Syr 2,000MG/20 ML 2,000 MG/20 ML SYRINGE IVPB ONE (06:23)
[2021-11-04] MEDS ORDERED: Protamine Sulfate 50 MG/5 ML VIAL IVP ONE (06:29)
[2021-11-04] MEDS ORDERED: Heparin 1,000 UNITS/500 mL 1,000 ML ONE (06:30)
[2021-11-04] MEDS ORDERED: Ringers Solution, Lactated 1,000 ML IVC SCH (06:30)
[2021-11-04] MEDS ORDERED: Acetaminophen IV 1,000 MG/100 ML BAG IVPB ONE (07:00)
[2021-11-04] MEDS ORDERED: Famotidine 20 MG/2 ML VIAL IVP ONE (07:00)
[2021-11-04] MEDS ORDERED: *HR* HYDROmorphone PF 0.5 MG/0.5 ML SYRINGE IVP PRN (07:05)
[2021-11-04] MEDS ORDERED: *HR* Metoprolol 5 MG/5 ML VIAL IVP PRN (07:05)
[2021-11-04] MEDS ORDERED: Albuterol 2.5 MG/3 ML NEBULIZER IH PRN (07:05)
[2021-11-04] MEDS ORDERED: Ondansetron 4 MG/2 ML VIAL IVP PRN ×2 (07:05→12:44)
[2021-11-04] MEDS ORDERED: Albuterol 2.5 MG/3 ML NEBULIZER IH ONE (07:05)
[2021-11-04] MEDS ORDERED: *HR* OxyCODONE Immed Rel 5 MG TABLET PO PRN ×2 (07:05→14:37)
[2021-11-04 07:09] LABS: Basophils # 0.1 K/mcL (0.0-0.2); Basophils % 0.8 %; Eosinophils # 1.3 K/mcL (0.0-0.6); Eosinophils % 13.8 %; Hematocrit 38.1 % (37.5-50.1); Hemoglobin 12.7 g/dL (12.9-16.9); Immature Granulocytes % 0.5 % (0-4); Lymphocytes # 2.3 K/mcL (0.6-4.6); Lymphocytes % 24.4 %; Mean Corpuscular HGB Conc 33.3 g/dL (31.6-35.5); Mean Corpuscular Hemoglobin 33.1 pg (28.0-33.3); Mean Corpuscular Volume 99.2 fL (83.0-100.0); Mean Platelet Volume 9.8 fL (9.4-12.4); Monocytes # 0.8 K/mcL (0.0-1.3); Neutrophils # 4.8 K/mcL (1.6-8.9); Platelet Count 255 K/mcL (140-400); Red Blood Count 3.84 M/mcL (4.19-5.50); Red Cell Distribution Width 15.3 % (11.5-14.5); Segmented Neutrophils % 51.5 %; White Blood Count 9.3 K/mcL (4.3-11.1)
[2021-11-04] MEDS ORDERED: *HR* Vasopressin 20 UNIT/ML VIAL ONE (07:10)
[2021-11-04] MEDS ORDERED: *HR* Norepinephrine 4 MG/4 ML VIAL IVC ONE (07:10)
[2021-11-04] MEDS ORDERED: NiCARdipine 2.5 MG/10 ML Syringe IVPB ONE (07:11)
[2021-11-04 07:16] LABS: Prothrombin Time 11.5 Seconds (9.4-12.1)
[2021-11-04] MEDS ORDERED: Heparin 1,000 UNITS/500 mL 500 ML ONE (07:16)
[2021-11-04 07:19] LABS: Activated Partial Thrombo Time 33.5 Seconds (26.0-36.0)
[2021-11-04] MEDS ORDERED: *HR* Propofol 200 MG/20 ML VIAL IVP ONE ×2 (07:23→09:29)
[2021-11-04] MEDS ORDERED: Lidocaine -MPF 2% 5 ML VIAL ONE (07:23)
[2021-11-04] MEDS ORDERED: *HR* Succinylcholine 200 MG/10 ML VIAL IVP ONE (07:23)
[2021-11-04] MEDS ORDERED: *HR* Rocuronium Bromide 50 MG/5 ML VIAL ONE (07:23)
[2021-11-04] MEDS ORDERED: EPINEPHrine 1 MG/ML VIAL ONE (07:25)
[2021-11-04] MEDS ORDERED: *HR* Phenylephrine 10 MG/ML VIAL ONE (07:25)
[2021-11-04 07:29] LABS: BUN/Creatinine Ratio 17 (6-26); Blood Urea Nitrogen 21 mg/dL (8-23); Calcium 9.9 mg/dL (8.6-10.3); Carbon Dioxide 25 mEq/L (23-29); Chloride 106 mEq/L (98-107); Glucose 104 mg/dL (70-105); Osmolality,Calculated 289 (280-300); Sodium 138 mEq/L (136-145); eGFR For African Americans > 60 (> 60); eGFR For Non-African Americans 59 (> 60)
[2021-11-04] MEDS ORDERED: Dexmedetomidine HCl 400 MCG/100 ML MLS IVC ONE (07:35)
[2021-11-04] MEDS ORDERED: *HR* FentaNYL (PF) 100 MCG/2 ML VIAL ONE (08:46)
[2021-11-04 08:51] LABS: ABG Base Excess -3 mEq/L (-2 to 3); ABG Chloride 109 mEq/L (98-107); ABG Glucose 120 mg/dL (60-95); ABG HCO3 21 mEq/L (21-27); ABG Ionized Calcium 1.25 mmol/L (1.15-1.35); ABG Oxygen Saturation 99 % (95-98); ABG PCO2 36 mmHg (35-45); ABG PH 7.39 pH Units (7.32-7.45); ABG PO2 134 mmHg (85-104); ABG TCO2 23 mEq/L (20-26)
[2021-11-04] MEDS ORDERED: *HR* Magnesium Sulfate 1 GM/2 ML VIAL ONE (09:19)
[2021-11-04] MEDS ORDERED: EPHEDrine 50 MG/ML VIAL ONE (09:27)
[2021-11-04] MEDS ORDERED: *HR* Heparin 5,000 UNIT/ML VIAL ONE (11:16)
[2021-11-04] MEDS ORDERED: Ondansetron 4 MG/2 ML VIAL ONE (12:00)
[2021-11-04] MEDS ORDERED: *HR* HYDROMORPHONE 2 MG/ML VIAL ONE (12:30)
[2021-11-04] MEDS ORDERED: Neostigmine Methylsulfate 3 MG/3 ML SYRINGE ONE (12:33)
[2021-11-04] MEDS ORDERED: Naloxone 0.4 MG/ML INJ IVP PRN (12:44)
[2021-11-04] MEDS ORDERED: *HR* Labetalol 20 MG/4 ML SYRINGE IVP PRN (12:44)
[2021-11-04] MEDS ORDERED: Balanced Salt Irrig Soln. IR ONE (13:21)
[2021-11-04] MEDS ORDERED: Balanced Salt Irrig Soln. ONE (13:24)
[2021-11-04] MEDS ORDERED: Lacri-Lube 3.5 GM TUBE ONE (13:25)
[2021-11-04] MEDS ORDERED: Fluticasone Propionate Nasal 50 MCG/SPRAY BOTTLE NS PRN (14:37)
[2021-11-04] MEDS ORDERED: CeFAZolin 2 GM/120 ML BAG IVPB SCH (16:00)
[2021-11-04] MEDS: Gabapentin 400 MG CAPSULE PO SCH ×2 (16:05→20:22)
[2021-11-04] MEDS: *HR* HYDROmorphone (PF) 1 MG/ML SYRINGE IVP PRN (20:21)
[2021-11-05] MEDS: *HR* OxyCODONE Immed Rel 5 MG TABLET PO PRN ×4 (00:13→14:00)
[2021-11-05] MEDS: *HR* HYDROmorphone (PF) 1 MG/ML SYRINGE IVP PRN (01:42)
[2021-11-05] MEDS ORDERED: Aspirin Enteric Coated 81 MG Tablet PO SCH (09:00)
[2021-11-05] MEDS ORDERED: Finasteride 5 MG TABLET PO SCH (09:00)
[2021-11-05] MEDS ORDERED: Tiotropium 10 INH DOSE IH SCH (09:00)
[2021-11-05] MEDS ORDERED: Furosemide 40 MG TABLET PO SCH (09:00)
[2021-11-05] MEDS ORDERED: lisinopriL 5 MG TABLET PO SCH (09:00)
[2021-11-05] MEDS ORDERED: Metoprolol XL (24 HR) Succ 25 MG TAB.ER.24H PO SCH (09:00)
[2021-11-05] MEDS: Gabapentin 400 MG CAPSULE PO SCH (09:06)
[2021-11-05 12:28] VITALS: BP 117/85; PULSE 82; TEMP 98.4; O2SAT 97
[2021-11-05] MEDS ORDERED: CeFAZolin 2,000 MG/120 ML BAG IVPB ONE (13:30)
== END 2021-11-05 14:59 | DRG 181 ==
LOC: SAMDAY 06:03 → 2NNU 15:10
PROVIDERS: ADMIT Surgery Vascular Surgery; ATTEND Surgery Vascular Surgery